=== PATIENT | male | born 1960 | race Caucasian/White ===

== ENCOUNTER 2018-01-16 06:59 | Outpatient (CLI) | payer OTHER, SELFPAY ==
[2018-01-16 08:00] LABS: Hemoglobin A1C 7.9 % (4.5-6.2)
[2018-01-16 08:38] LABS: TSH 2.18 uIU/mL (0.358-3.74)
== END 2018-01-16 07:19 ==
PROVIDERS: PCP Nurse Practitioner Family; Visit Provider Internal Medicine Endocrinology, Diabetes & Metabolism
DX: E10.9 Type 1 diabetes mellitus without complications (principal)
CPT/HCPCS: 36415; 83036; 84443

== ENCOUNTER 2018-04-15 09:42 | Outpatient (REF) | payer OTHER, SELFPAY ==
[2018-04-15 10:27] LABS: Hemoglobin A1C 8.2 % (4.5-6.2)
[2018-04-15 10:48] LABS: COMMENT (LAB VIEW ONLY) 180.84 mg/dL; Microalb ug/mg Crea 130.1 ug/mg Cr
== END 2018-04-15 10:02 ==
LOC: LBN 09:42
PROVIDERS: PCP Nurse Practitioner Family; Visit Provider Internal Medicine Endocrinology, Diabetes & Metabolism
DX: E10.65 Type 1 diabetes mellitus with hyperglycemia (principal)
CPT/HCPCS: 82043; 82570; 83036

== ENCOUNTER 2018-05-23 07:17 | Outpatient (CLI) | payer OTHER, SELFPAY ==
[2018-05-23 10:17] LABS: Hemoglobin A1C 8.2 % (4.5-6.2)
[2018-05-23 10:36] LABS: COMMENT (LAB VIEW ONLY) 253.24 mg/dL; Microalb ug/mg Crea 101.8 ug/mg Cr
[2018-05-23 10:58] LABS: ALT 30 U/L (12-78); AST 22 U/L (15-37); Albumin 3.6 g/dL (3.4-5.0); Alkaline Phosphatase 99 U/L (46-116); Anion Gap 10.8 mmol/L (3-11); BUN 22 mg/dL (7-18); Bilirubin, Total 0.8 mg/dL (0.2-1.0); CO2 26.2 mmol/L (21.0-32.0); Chloride 104 mmol/L (98-107); Glucose 176 mg/dL (70-100); Potassium 3.9 mmol/L (3.5-5.1); Sodium 141 mmol/L (136-145); TSH 1.73 uIU/mL (0.358-3.74)
== END 2018-05-23 07:37 ==
PROVIDERS: PCP Nurse Practitioner Family; Visit Provider Internal Medicine Endocrinology, Diabetes & Metabolism
DX: E10.9 Type 1 diabetes mellitus without complications (principal); E10.65 Type 1 diabetes mellitus with hyperglycemia; E10.29 Type 1 diabetes mellitus with other diabetic kidney complication; R80.9 Proteinuria, unspecified
CPT/HCPCS: 36415; 80053; 82043; 82570; 83036; 84443

== ENCOUNTER 2018-10-01 10:15 | Outpatient (REF) | payer OTHER, SELFPAY ==
[2018-10-01 11:19] LABS: COMMENT (LAB VIEW ONLY) 169.71 mg/dL; Microalb ug/mg Crea 165.9 ug/mg Cr
[2018-10-01 13:55] LABS: Anion Gap 10.1 mmol/L (3-11); BUN 23 mg/dL (7-18); CO2 26.9 mmol/L (21.0-32.0); CREATININE 0.98 mg/dL (0.70-1.30); Calcium 8.9 mg/dL (8.5-10.1); Chloride 102 mmol/L (98-107); Glucose 190 mg/dL (70-100); Sodium 139 mmol/L (136-145)
[2018-10-01 14:30] LABS: Hemoglobin A1C 8.1 % (4.5-6.2)
== END 2018-10-01 10:35 ==
LOC: LBN 10:15
PROVIDERS: PCP Nurse Practitioner Family; Visit Provider Internal Medicine Endocrinology, Diabetes & Metabolism
DX: E10.9 Type 1 diabetes mellitus without complications (principal); E10.65 Type 1 diabetes mellitus with hyperglycemia
CPT/HCPCS: 80048; 82043; 82570; 83036

== ENCOUNTER 2019-02-10 08:09 | Outpatient (REF) | payer OTHER, SELFPAY ==
[2019-02-10 13:02] LABS: COMMENT (LAB VIEW ONLY) 133.19 mg/dL
[2019-02-10 13:06] LABS: Microalb ug/mg Crea 233.7 ug/mg Cr
[2019-02-10 14:12] LABS: Hemoglobin A1C 7.7 % (4.5-6.2)
[2019-02-10 14:21] LABS: Anion Gap 10.3 mmol/L (3-11); BUN 25 mg/dL (7-18); CO2 27.7 mmol/L (21.0-32.0); CREATININE 1.13 mg/dL (0.70-1.30); Calcium 8.7 mg/dL (8.5-10.1); Calculated LDL 106 mg/dL; Chloride 102 mmol/L (98-107); Cholesterol 179 mg/dL (50-200); Glucose 158 mg/dL (70-100); HDL Cholesterol 52 mg/dL (40-60); Potassium 3.6 mmol/L (3.5-5.1); Sodium 140 mmol/L (136-145); Triglyceride 108 mg/dL (30-150)
== END 2019-02-10 08:29 ==
LOC: LBN 08:09
PROVIDERS: PCP Nurse Practitioner Family; Visit Provider Internal Medicine Endocrinology, Diabetes & Metabolism
DX: E10.8 Type 1 diabetes mellitus with unspecified complications (principal)
CPT/HCPCS: 80048; 80061; 82043; 82570; 83036

== ENCOUNTER 2019-05-19 08:05 | Outpatient (CLI) | payer OTHER, SELFPAY ==
[2019-05-19 09:48] LABS: Hemoglobin A1C 8.6 % (3.8-5.6)
== END 2019-05-19 08:25 ==
PROVIDERS: PCP Nurse Practitioner Family; Visit Provider Internal Medicine Endocrinology, Diabetes & Metabolism
DX: E10.29 Type 1 diabetes mellitus with other diabetic kidney complication (principal); R80.9 Proteinuria, unspecified
CPT/HCPCS: 36415; 83036

== ENCOUNTER 2019-07-25 15:07 | Outpatient (CLI) | payer OTHER, SELFPAY ==
--- NOTE | 2019-07-25 14:30 | DIABASSESS_ITS ---
DESCRIPTION/ASSESSMENT: Eric Lau presents for diabetes consult for information regarding continuous glucose monitors. He has type 1 diabetes 35 years without complications. INTERVENTION: Reviewed Freestyle Pearl and Dexcom G6 continuous glucose monitors and showed him the devices and discussed advantages and disadvantages of each. 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 He denies serious hypoglycemia unawareness. Process is PCP prescribes Freestyle Pearl: 1 FreeStyle Pearl 14 day reader (reader refills not required) [facility]# [id number] 2 FreeStyle Pearl 14 day sensors (28-day supply) [facility]# [id number] Sensor refills: 12 additional fills annually (1-year supply) ACTION PLAN: Eric will wait to hear from his PCP that the device has been ordered. He will follow up here to place the sensor and set up the reader for the first time. Individual DSME/T _2___ units billed TIME IN: 1420 OUT: 1500 No DM group education series being offered at this time.
== END 2019-07-25 15:27 ==
PROVIDERS: PCP Nurse Practitioner Family; Visit Provider Dietitian, Registered
DX: E11.9 Type 2 diabetes mellitus without complications (principal); Z79.4 Long term (current) use of insulin; Z71.3 Dietary counseling and surveillance
CPT/HCPCS: G0108

== ENCOUNTER 2019-09-18 09:45 | Outpatient (REF) | payer OTHER, SELFPAY ==
[2019-09-18 12:11] LABS: Hemoglobin A1C 6.9 % (3.8-5.6)
== END 2019-09-18 10:05 ==
LOC: LBN 09:45
PROVIDERS: PCP Nurse Practitioner Family; Visit Provider Internal Medicine Endocrinology, Diabetes & Metabolism
DX: E10.8 Type 1 diabetes mellitus with unspecified complications (principal)
CPT/HCPCS: 36415; 83036

== ENCOUNTER 2020-01-07 03:20 | Outpatient (CLI) | payer OTHER, SELFPAY | END 2020-01-07 03:40 | PROVIDERS: PCP Nurse Practitioner Family; Visit Provider Internal Medicine Endocrinology, Diabetes & Metabolism | DX: E10.29 Type 1 diabetes mellitus with other diabetic kidney complication (principal); R80.9 Proteinuria, unspecified | CPT/HCPCS: 36415; 83036 ==

== ENCOUNTER 2020-01-08 04:28 | Outpatient (CLI) | payer OTHER, SELFPAY ==
[2020-01-08 08:19] LABS: Hemoglobin A1C 7.2 % (3.8-5.6)
== END 2020-01-08 04:48 ==
PROVIDERS: PCP Nurse Practitioner Family; Visit Provider Internal Medicine Endocrinology, Diabetes & Metabolism
DX: E10.29 Type 1 diabetes mellitus with other diabetic kidney complication (principal); R80.9 Proteinuria, unspecified
CPT/HCPCS: 36415; 83036

== ENCOUNTER 2020-05-27 13:26 | Outpatient (REF) | payer OTHER, SELFPAY ==
[2020-05-27 10:13] LABS: Hemoglobin A1C 8.1 % (<5.7)
== END 2020-05-27 13:46 ==
LOC: NCHCN 13:26
PROVIDERS: PCP Nurse Practitioner Family; Visit Provider Nurse Practitioner Family
DX: E11.9 Type 2 diabetes mellitus without complications (principal)
CPT/HCPCS: 36415; 83036

== ENCOUNTER 2020-05-28 10:50 | Outpatient (REF) | payer OTHER, SELFPAY ==
[2020-05-28 15:25] LABS: COMMENT (LAB VIEW ONLY) 133.41 mg/dL; Microalb ug/mg Crea 207.9 ug/mg Cr
== END 2020-05-28 11:10 ==
LOC: NCHCN 10:50
PROVIDERS: PCP Nurse Practitioner Family; Visit Provider Nurse Practitioner Family
DX: I10 Essential (primary) hypertension (principal); E10.9 Type 1 diabetes mellitus without complications; E78.5 Hyperlipidemia, unspecified
CPT/HCPCS: 82043; 82570

== ENCOUNTER 2020-12-31 06:50 | Outpatient (REF) | payer OTHER, SELFPAY ==
[2020-12-31 07:23] LABS: Anion Gap 9.7 mmol/L (3-11); BUN 16 mg/dL (7-18); CO2 29.3 mmol/L (21.0-32.0); Calcium 8.5 mg/dL (8.5-10.1); Calculated LDL 123 mg/dL (<100); Chloride 104 mmol/L (98-107); Cholesterol 202 mg/dL (<200); Glucose 122 mg/dL (74-106); HDL Cholesterol 47 mg/dL (40-60); Potassium 4.1 mmol/L (3.5-5.1); Sodium 143 mmol/L (136-145); Triglyceride 162 mg/dL (<150)
[2020-12-31 07:41] LABS: FREE T4 0.82 ng/dL (0.76-1.46)
== END 2020-12-31 06:51 | disposition home or self-care (01) ==
LOC: NCHCN 06:50
PROVIDERS: PCP Nurse Practitioner Family; Visit Provider Nurse Practitioner Family
DX: I10 Essential (primary) hypertension (principal); E78.5 Hyperlipidemia, unspecified; E10.9 Type 1 diabetes mellitus without complications
CPT/HCPCS: 80048; 80061; 84439; 84443

== ENCOUNTER 2021-03-04 08:48 | Outpatient (CLI) | payer OTHER, SELFPAY ==
--- NOTE | 2021-03-04 08:45 | RT.EKG_ITS ---
APPROVED REPORT Exam: Resting ECG Reason for Exam: HTN Patient Location: O HR:55 bpm ECG Measurements Heart Rate 55 AXIS SD 207 P 47 QRSd 88 QRS 48 QT 456 T [id number] QTc 437 Conclusion Sinus rhythm...normal P axis, V-rate 50- 99 Probable left atrial enlargement...P >50mS, <-0.10mV V1 LVH with repolarization abnormalities Poor R wave progression
== END 2021-03-04 08:49 | disposition home or self-care (01) ==
LOC: DI.CARD 08:49
PROVIDERS: PCP Nurse Practitioner Family; Visit Provider Internal Medicine Cardiovascular Disease
DX: I10 Essential (primary) hypertension (principal)
CPT/HCPCS: 93010

== ENCOUNTER 2021-11-29 19:24 | Outpatient (REF) | payer OTHER, SELFPAY ==
[2021-11-29 20:54] LABS: Abs Immature Grans 0.05 10^3/uL (0.0-0.06); Absolute Basophil Count 0.04 10^3/uL (0.0-0.2); Absolute Eosinophil Count 0.21 10^3/uL (0.0-0.7); Absolute Lymphocyte Count 2.25 10^3/uL (1.2-3.4); Absolute Monocyte Count 0.66 10^3/uL (0.1-0.8); Absolute Neutrophil Count 6.16 10^3/uL (1.2-6.7); Basophils % 0.4; Eosinophils % 2.2; HCT 32.1 % (40.0-50.0); Immature Grans % 0.5; MCH 31.6 pg (27.0-33.0); MCHC 34.3 % (32.0-36.0); MCV 92 fL (80-95); MPV 10.8 fL (8.0-11.0); Neutrophils % 65.9; Platelet Count 398 10^3/uL (130-400); RBC 3.48 10^6/uL (4.36-5.78); RDW 12.4 % (11.8-14.1); RDW-SD 41.2 fL; WBC 9.37 10^3/uL (4.4-10.8)
[2021-11-29 21:09] LABS: ALT 96 U/L (16-63); AST 49 U/L (15-37); Albumin 2.5 g/dL (3.4-5.0); Alkaline Phosphatase 160 U/L (46-116); Anion Gap 8.3 mmol/L (3-11); BUN 21 mg/dL (7-18); Bilirubin, Total 0.3 mg/dL (0.2-1.0); CO2 26.7 mmol/L (21.0-32.0); CREATININE 1.3 mg/dL (0.70-1.30); Calcium 8.3 mg/dL (8.5-10.1); Chloride 102 mmol/L (98-107); Estimated GFR 55.75 (mL/min/1.73m2); Glucose 232 mg/dL (74-106); NT-proBNP 1825 pg/mL (<300); Potassium 4.7 mmol/L (3.5-5.1); Sodium 137 mmol/L (136-145); Total Protein 6.3 g/dL (6.4-8.2)
== END 2021-11-29 19:25 | disposition home or self-care (01) ==
LOC: LBN 19:24
PROVIDERS: PCP Nurse Practitioner Family; Visit Provider Nurse Practitioner Family
DX: I10 Essential (primary) hypertension (principal); I50.9 Heart failure, unspecified; J06.9 Acute upper respiratory infection, unspecified; R60.0 Localized edema; E03.9 Hypothyroidism, unspecified; E10.9 Type 1 diabetes mellitus without complications; E78.5 Hyperlipidemia, unspecified
CPT/HCPCS: 80053; 83880; 85025

== ENCOUNTER 2021-12-01 14:10 | Emergency (ER) | payer OTHER, SELFPAY ==
--- NOTE | 2021-12-01 14:15 | RT.EKG_ITS ---
APPROVED REPORT Exam: Resting ECG Reason for Exam: chf Patient Location: E HR:62 bpm ECG Measurements Heart Rate 62 AXIS WI 188 P 54 QRSd 94 QRS 42 QT 432 T 82 QTc 441 Conclusion Sinus rhythm...normal P axis, V-rate 60- 99 Anterior infarct, old...Q >40mS, abnormal ST-T, V2-V5
[2021-12-01 14:16] VITALS: BP 141/65; PULSE 68; RESP 16; TEMP 36.7; O2SAT 98
--- NOTE | 2021-12-01 14:36 | ED.GENADUL_ITS ---
Discharge Plan Disposition Patient Disposition: HOME Condition: Stable Discharge Details Clinical Impression: CHF (congestive heart failure) Primary Care Provider: Prachi Charles ED Provider: Gerber Casanova Home Meds and New Rx's Prescriptions: New furosemide [Lasix] 20 mg tablet 20 mg PO DAILY Qty: 30 0RF Continued clonidine HCl 0.1 mg tablet 0.1 mg PO DAILY insulin glargine [Lantus U-100 Insulin] 100 UNIT/1 ML solution 50 units SQ DAILY levothyroxine 75 MCG tablet 75 mcg PO DAILY Humalog KwikPen Insulin 200 UNIT/1 ML insulin pen 1 - 10 unit SQ TID metoprolol succinate 100 mg tablet extended release 24 hr 100 mg PO DAILY cyanocobalamin (vitamin B-12) [Vitamin B-12] 500 mcg tablet 500 mcg PO DAILY quinapril 40 mg tablet 80 mg PO BID ibuprofen [Ibuprofen IB] 200 MG tablet 600 mg PO PRN PRN pravastatin 40 MG tablet 40 mg PO QAM diltiazem HCl 300 MG capsule,extended release 24 hr 360 mg PO QAM hydrochlorothiazide 25 MG tablet 25 mg PO QAM aspirin [Aspirin Low-Strength] 81 MG tablet,chewable 81 mg PO QAM Discharge Instructions Instructions: Heart Failure (ED) Additional Instructions: your blood work other than your bnp which measures heart failure did not show concerning findings take the lasix daily in the morning follow up with your primary care provider within 1 week if you feel more ill, have worsening symptoms or chest pain return to the emergency department Medical Decision Making 61 yo male with hx of htn, hld, dm, no prior known cardiac disease comes in with complaint of leg swelling. He states a month or so ago he got the covid booster and the next day started to feel fatigued, dyspnea with exertion and body aches. He states the body aches resolved but still has some fatigue and dyspnea with exertionthough this is also improving. He saw [facility] and had labs done on 11/29 and his probnp was over 1800 and so came here. He denies any chest pain or pressure and on exam appears well in no distress speaking clearly. He does have pitting edema of both lower legs to the mid tibia, no calf tenderness. He has b lines bilaterally on lung u/s, small pericardial effusion, EF doesn't appear severely diminished. Suspect chf with his findings on lung u/s and probnp. Will obtain ecg, troponin and repeat cmp and cbc and also cxr. no hypoxia, tachycardia or pleuritic chest pain so doubt PE labs unremarkable other than probnp of over 4000, troponin negative. he remains stable and has urinated over 500cc and feels well. Discussed with pt and given he is not requiring oxygen nor having chest pain feel if second troponin is negative he would be safe for d/c and follow up with his pcp pt stable and asymptomatic, second troponin negative. Will start him on 20mg lasix and have him f/u with pcp return precautions also given Differential Diagnosis Differential Diagnosis: chf, nstemi, dependent edema Medical Records Medical records reviewed: Yes I reviewed the patient's medical records. Imaging Data Radiologic Study: Attestation: I personally reviewed and interpreted this imaging study as follows: Imaging: X-Ray Radiologist's impression: Patient Name: Yeyo Lau Unit #: [id number] Loc: ER ? Ordering Provider:Gerber Leiva M.D. Status: REG ER ? Primary Care Provider: Prachi Charles Date of Exam: 12/01/21 Sex: M ? Admission Date: 12/01/21? : 1960 ? Age: 61 ? Exam(s) XR CHEST 2V PA ? LATERAL EXAM:? XR CHEST 2V PA ? LATERAL CLINICAL HISTORY: ? dyspnea. ? TECHNIQUE:? 2D digital imaging was performed. COMPARISON:? No exams were available for comparison FINDINGS: 2 views: Heart size is normal.? The mediastinum is not widened. There is platelike atelectasis in the lateral right lung base.? No confluent infiltrates.? No large pleural effusions.? Pulmonary.? No pneumothorax. IMPRESSION: There is platelike atelectasis in the lateral right lung base. Lab Data Lab results reviewed: Yes I reviewed the patient's lab results. ECG Data Attestation: I personally reviewed and interpreted this ECG (s) as follows: Prior ECG tracings: available for review Interpretation: sinus rhythm, rate of 62, no acute st t wave ischemic findings HPI General Mode of arrival: ambulatory . Date/Time Provider Initiated Documentation: 12/01/21 14:16 . Limitations to Documentation: no limitations . Information obtained by: patient . History of Present Illness 61 year old M presents to the emergency department with the chief complaint of swollen legs, described as moderate, Patient started experiencing this month(s) (1) and it has been constant. No relieving factors improve symptom(s), No exacerbating factors reported . Patient notes other (fatigue, dyspnea with exertion). Patient did receive the following treatments prior to arrival, none Related Data Home Medications Medication Instructions Recorded Confirmed aspirin 81 mg chewable tablet 81 mg PO QAM 05/13/14 12/01/21 (Aspirin Low-Strength) diltiazem HCl 300 mg capsule,24 360 mg PO QAM 05/13/14 12/01/21 hr,extended release hydrochlorothiazide 25 mg tablet 25 mg PO QAM 05/13/14 12/01/21 ibuprofen 200 mg tablet (Ibuprofen 600 mg PO PRN PRN 05/13/14 03/04/21 IB) pravastatin 40 mg tablet 40 mg PO QAM 05/13/14 12/01/21 insulin glargine 100 unit/mL 50 units SQ DAILY 06/28/15 12/01/21 subcutaneous solution (Lantus U-100 Insulin) insulin lispro 200 unit/mL (3 mL) 1 - 10 unit SQ TID 06/28/15 12/01/21 subcutaneous pen (Humalog KwikPen U-200 Insulin) levothyroxine 75 mcg tablet 75 mcg PO DAILY 06/28/15 12/01/21 cyanocobalamin (vitamin B-12) 500 500 mcg PO DAILY 02/10/21 12/01/21 mcg tablet (Vitamin B-12) metoprolol succinate 100 mg 100 mg PO DAILY 02/10/21 12/01/21 tablet,extended release 24 hr clonidine HCl 0.1 mg tablet 0.1 mg PO DAILY 03/04/21 12/01/21 quinapril 40 mg tablet 80 mg PO BID 03/04/21 12/01/21 furosemide 20 mg tablet (Lasix) 20 mg PO DAILY #30 tabs 12/01/21 Previous Rx's Medication Instructions Recorded furosemide 20 mg tablet (Lasix) 20 mg PO DAILY #30 tabs 12/01/21 Allergies Allergy/AdvReac Type Severity Reaction Status Date / Time No Known Allergies Allergy Verified 12/01/21 14:23 General Stated Complaint: GenMedical LORA: 3 Review of Systems All systems reviewed & are unremarkable except as noted in HPI and below Constitutional Constitutional: Denies chills, Denies fever(s) and Denies weakness Eyes Eyes: Denies loss of vision ENT Ears, Nose, Mouth, and Throat: Denies change in voice Cardiovascular Cardiovascular: Denies chest pain Respiratory Respiratory: Denies cough Gastrointestinal Gastrointestinal: Denies abdominal pain, Denies nausea and Denies vomiting Genitourinary Genitourinary: Denies dysuria Integumentary/Breasts Skin/Breast: Denies rash Neurologic Neurologic: Denies loss of vision and Denies weakness PFSH All Active Problems (Updated 12/01/21 @ 18:10 by Gerber Casanova MD) CHF (congestive heart failure) (Chronic) HTN (hypertension) with goal to be determined (Acute) Type 1 diabetes mellitus without complications (Acute) Accelerated essential hypertension (Acute) Hyperlipidemia, unspecified (Acute) Acquired hypothyroidism (Acute) Screening for colorectal cancer (Acute) Social History Smoking/Tobacco Use Status: Former Tobacco Use Smoking risk assessment performed?: Yes Alcohol Intake: current Alcohol Intake frequency: a few times a month Drug use: Never Substance use type: does not use Do you feel safe at home: Yes Do you feel safe in your relationship?: Yes Exam Const General: no acute distress Orientation: alert [facility] Head: normal to inspection Ears: external ears normal General nose exam: external nose normal Mouth: moist mucous membranes Eyes General: appearance normal, both eyes and all related structures Neck Neck: normal visual inspection Resp Effort & Inspection: normal respiratory effort and able to speak in complete sentences Cardio Rate: regular rate Skin General skin exam: no rashes or lesions noted Neuro General: patient alert and patient oriented x3 Extrem General: capillary refill normal Psych Mental Status: mental status grossly normal Course Vital Signs Vital signs: Vital Signs Temperature 36.7 C 12/01/21 14:16 Pulse 68 12/01/21 14:16 Respiratory Rate 16 12/01/21 14:16 Blood Pressure 141/65 H 12/01/21 14:16 Pulse Oximetry 98 07/21/22 14:16 Temperature 36.7 C 12/01/21 14:16 Pulse 68 12/01/21 14:16 Respiratory Rate 16 12/01/21 14:16 Respiratory Effort 12/01/21 14:25 Respiratory Depth Normal 12/01/21 14:25 Respiratory Pattern Normal 12/01/21 14:25 Blood Pressure 141/65 H 12/01/21 14:16 Pulse Oximetry 98 12/01/21 14:16
[2021-12-01] MEDS: Furosemide 20 MG/2 ML VIAL IVP (14:56)
[2021-12-01] MEDS: Normal Saline Flush 10 ML SYR IVP (14:57)
[2021-12-01 15:05] LABS: Source Nasal/Nares
[2021-12-01 15:06] LABS: Abs Immature Grans 0.05 10^3/uL (0.0-0.06); Absolute Basophil Count 0.04 10^3/uL (0.0-0.2); Absolute Eosinophil Count 0.17 10^3/uL (0.0-0.7); Absolute Lymphocyte Count 1.91 10^3/uL (1.2-3.4); Absolute Neutrophil Count 6.64 10^3/uL (1.2-6.7); Basophils % 0.4; Eosinophils % 1.8; HCT 32.2 % (40.0-50.0); HGB 10.8 g/dL (13.5-17.5); Immature Grans % 0.5; Lymphocytes % 20.3; MCHC 33.5 % (32.0-36.0); MCV 93 fL (80-95); MPV 9.6 fL (8.0-11.0); Monocytes % 6.4; Neutrophils % 70.6; Platelet Count 425 10^3/uL (130-400); RBC 3.48 10^6/uL (4.36-5.78); RDW 12.6 % (11.8-14.1); WBC 9.41 10^3/uL (4.4-10.8)
[2021-12-01 15:21] LABS: INR 1.1 (0.9-1.1); PTT Activated 27.3 sec (21.0-27.5)
[2021-12-01 15:24] LABS: Magnesium 2.1 mg/dL (1.8-2.4); Troponin I < 50 ng/L (<or=60)
--- NOTE | 2021-12-01 15:30 | DI.RAD_ITS ---
Exam(s) XR CHEST 2V PA LATERAL EXAM: XR CHEST 2V PA LATERAL CLINICAL HISTORY: dyspnea. TECHNIQUE: 2D digital imaging was performed. COMPARISON: No exams were available for comparison FINDINGS: 2 views: Heart size is normal. The mediastinum is not widened. There is platelike atelectasis in the lateral right lung base. No confluent infiltrates. No large p leural effusions. Pulmonary. No pneumothorax. IMPRESSION: There is platelike atelectasis in the lateral right lung base. DATA REPOSITORY: RADIATION DOSE DELIVERED:
[2021-12-01 15:43] LABS: ALT 61 U/L (16-63); AST 30 U/L (15-37); Albumin 2.4 g/dL (3.4-5.0); Alkaline Phosphatase 133 U/L (46-116); Anion Gap 5.9 mmol/L (3-11); BUN 17 mg/dL (7-18); Bilirubin, Total 0.4 mg/dL (0.2-1.0); CO2 28.1 mmol/L (21.0-32.0); CREATININE 1.2 mg/dL (0.70-1.30); Calcium 8.7 mg/dL (8.5-10.1); Chloride 103 mmol/L (98-107); Glucose 156 mg/dL (74-106); NT-proBNP 4346 pg/mL (<300); Potassium 4.2 mmol/L (3.5-5.1); Sodium 137 mmol/L (136-145); Total Protein 6.6 g/dL (6.4-8.2)
[2021-12-01 15:57] LABS: COVID-19 PCR Negative (Negative)
[2021-12-01 17:56] LABS: Troponin I < 50 ng/L (<or=60)
[2021-12-01 18:24] VITALS: BP 160/68; PULSE 68; RESP 24; O2SAT 96
== END 2021-12-01 18:36 | disposition home or self-care (01) ==
PROVIDERS: Emergency Provider Emergency Medicine; PCP Nurse Practitioner Family
DX: I11.0 Hypertensive heart disease with heart failure (principal); I50.9 Heart failure, unspecified; E11.9 Type 2 diabetes mellitus without complications; I31.3 Pericardial effusion (noninflammatory); R60.0 Localized edema; R53.83 Other fatigue; Z20.822 Contact with and (suspected) exposure to COVID-19; Z87.891 Personal history of nicotine dependence
CPT/HCPCS: 80053; 87635; 93005; 96374; 99284; 71046; 83735; 83880; 84484; 85025; 85610; 85730; 93010; 99285; J1941

== ENCOUNTER 2021-12-07 03:27 | Emergency (ER) | payer OTHER, SELFPAY ==
--- NOTE | 2021-12-07 03:45 | DI.CT_ITS ---
Exam(s) CT THORACIC LUMBAR SPINE WO CT RENAL COLIC WO EXAM: CT RENAL COLIC WO and CT thoracic and lumbar spine without CLINICAL HISTORY: right flank and back pain, r/o stone. TECHNIQUE: Imaging Protocol: Axial computed tomography images with coronal and sagittal reformatted images were created and reviewed. COMPARISON: CT CT THORACIC LUMBAR SPINE WO from 12/07/2021 FINDINGS: Thoracic spine CT without contrast: There are no acute fractures or subluxations present. Mild degen erative changes are present throughout the thoracic spine. The visualized lung bases are clear. Cor onary artery calcifications are present. ABDOMEN: Lung Bases: Coronary artery calcifications are present. Liver: Normal density. There is a 3.2 x 3 cm hypodense mass in the posterior segment of the right lob e of the liver. Gallbladder and biliary tract: No radiodense calculus or biliary ductal dilation. Pancreas: Normal density, no abnormal calcifications or inflammatory process. Spleen: Calcified granuloma are seen in the spleen. Kidneys: Normal size, contour and axis.No radiodense stones or obstructive uropathy. No masses seen. Adrenal glands: No mass is seen. Lymph nodes: Within normal limits. Abdominal Aorta: Abdominal portion non-dilated. Atherosclerosis is present. PELVIS: Bladder:The urinary bladder is incompletely distended. There is mild diffuse thickening of the wall of the bladder. This may be due to underdistention. Infectious or inflammatory cystitis or other ca uses cannot be excluded. Bowel: No obstruction or bowel wall thickening. Appendix is unremarkable. There are few scattered si gmoid diverticula but no evidence of acute diverticulitis. Peritoneal cavity: No ascites, collection or mesenteric inflammatory response. No free air. Reproductive organs: Unremarkable as visualized. Bones: Within normal limits. Soft Tissues: There is a small fat containing umbilical hernia. Bilateral fat containing inguinal he rnia are present. Lumbar spine CT without contrast: Age-appropriate degenerative changes are present. The findings do result in [id number] central spinal canal stenosis at L4-5 and L5-S1. No suspicious lytic or s clerotic lesions are seen. There is no acute fracture or subluxation. IMPRESSION: 1. No evidence of nephrolithiasis or hydronephrosis. 2. 3.2 x 3 cm hypodense mass in the posterior segment of the right lobe of the liver. This is indete rminate on this noncontrast examination. Follow-up with a postcontrast CT scan of the abdomen or a p re and postcontrast MRI of the abdomen is recommended. 3. Multilevel degenerative changes in the lumbar spine. No acute fracture or subluxation in the lumb ar spine. 4. No acute fracture or subluxation is seen in the thoracic spine. RADIATION DOSE DELIVERED: 2081.02 mGy.cm Total DLP DATA REPOSITORY: All CT scans at this facility are submitted to the National Radiology Data Registry (NRDR) Dose Index Registry (DIR) with the [employer] ([employer]). RADIATION OPTIMIZATION: All CT scans at this facility use at least one of these dose optimization te chniques: automated exposure control; mA and/or kV adjustment per patient size (includes targeted exa ms where dose is matched to clinical indication); or iterative reconstruction.
[2021-12-07 03:47] VITALS: BP 140/88; PULSE 88; RESP 16; TEMP 39.7
--- NOTE | 2021-12-07 04:07 | ED.GENADUL_ITS ---
Discharge Plan Disposition Patient Disposition: HOME Condition: Good Discharge Details Clinical Impression: Chronic right-sided back pain Primary Care Provider: Prachi Charles ED Provider: Justen Hightower Home Meds and New Rx's Prescriptions: New lidocaine [Lidoderm] 5 % adhesive patch,medicated 1 patch Topical Q24H Qty: 15 0RF cyclobenzaprine 10 mg tablet 10 mg PO TID Qty: 14 0RF Continued clonidine HCl 0.1 mg tablet 0.1 mg PO DAILY insulin glargine [Lantus U-100 Insulin] 100 UNIT/1 ML solution 50 units SQ DAILY levothyroxine 75 MCG tablet 75 mcg PO DAILY Humalog KwikPen Insulin 200 UNIT/1 ML insulin pen 1 - 10 unit SQ TID metoprolol succinate 100 mg tablet extended release 24 hr 100 mg PO DAILY cyanocobalamin (vitamin B-12) [Vitamin B-12] 500 mcg tablet 500 mcg PO DAILY quinapril 40 mg tablet 80 mg PO BID ibuprofen [Ibuprofen IB] 200 MG tablet 600 mg PO PRN PRN pravastatin 40 MG tablet 40 mg PO QAM diltiazem HCl 300 MG capsule,extended release 24 hr 360 mg PO QAM hydrochlorothiazide 25 MG tablet 25 mg PO QAM aspirin [Aspirin Low-Strength] 81 MG tablet,chewable 81 mg PO QAM furosemide [Lasix] 20 mg tablet 20 mg PO DAILY Qty: 30 0RF Discharge Instructions Instructions: Back Pain (ED) Additional Instructions: At this time your symptoms appear consistent with a combination of arthritis in your spine, as well as spasms in your back. Please use a heating pad every night, make sure you are sleeping on a good mattress, and take Tylenol and Motrin as needed for pain. You can also take the muscle relaxant cyclobenzaprine as needed for spasm. As well as for Lidoderm patches. They have been sent to your pharmacy on file. It is extremely important to note that you should not take the cyclobenzaprine/muscle relaxant while working at your job though as it can cloud your mind and make you unbalanced. do not take it when driving or operating any vehicles or heavy machinery, swimming, taking long baths, or operating firearms. Please use a heating pad as often as possible on your back. Perform daily gentle stretches on your back. If you notice any worsening of your symptoms, or any new symptoms such as vomiting, diarrhea, fever, chills, shortness of breath, chest pain, numbness or tingling in your groin or legs, weakness in your legs, loss of control for your bowels or bladder, or fainting , please return immediately to the emergency department for reevaluation. Please follow up with your primary care provider as soon as possible for reassessment and reevaluation. As always, it was a pleasure participating in your medical care today. Referrals: Prachi Charles [Primary Care Provider] - Medical Decision Making 61-year-old male with a past medical history of congestive heart failure, hypertension, type 1 diabetes, high cholesterol, who presents today for right-sided back and flank pain. Patient states that symptoms have been present for the last 6 to 7 months. It is worse when he lies down at night to go to bed. He does work at [employer] and does do a lot of regular heavy lifting. He states he has been trying to cut down his lifting to around 25 pounds as of late. He states his pain is improved with Tylenol and Motrin. He states that it feels like it is more associated with the right flank and right back. It goes from around the area of the scapula down to the right lower back. Additionally the patient states that he has noticed that his urine has been slightly darker as of late. He denies seeing any blood. Patient denies any saddle anesthesia, numbness or tingling in the groin, change in sensation when wiping. Patient denies any change in sensation during sexual intercourse, difficulty achieving or maintaining an erection or ejaculation, bowel or bladder incontinence, leakage, or retention. Patient denies any weakness in the lower extremities, atypical falls or imbalance. He has no other complaints at this time. No other modifying factors. Physical exam demonstrates midline tenderness around T8-11, and then right paraspinal tenderness on the right paraspinal space down to the right-sided thoracic area and the right-sided lumbar area as well. No significant right CVA tenderness. Genital exam unremarkable. No physical exam findings or clinical history concerning for cauda equina syndrome. Differential is highest for arthritis and chronic lumbar go, however kidney stone and renal abnormality is also a slight concern. We will get a CT scan to evaluate for any bony process or kidney stone, we will get a UA to evaluate for infection or blood. Will monitor closely and reassess. 7:05 AM Urinalysis is negative for acute process. Notable delay in virtual radiology for CT scans. We are pending these. Patient feels stable otherwise. Will prep for potential discharge was signed out to Dr. Mantilla for follow-up on\and labs notable orthopedic or radiographic abnormality noted on CT scan, clinically I would suspect that the patient's symptoms are likely related to spine facet arthritis and muscle spasm. CT scan negative for acute process. Patient stable for discharge. No clinical evidence of cauda equina syndrome. Recommend close follow-up with PCP. I have extensively reviewed the treatment plan and discharge instructions with the patient. I have addressed all patient concerns at this time. The patient was made aware of what symptoms to monitor for that would warrant a return to the emergency department. Discussed the plan with the patient, they demonstrate verbal understanding and agreement with our assessment and plan at this time. The documentation in this chart was dictated using [employer] dictation software. Please excuse any dictation errors. FINDINGS: Bones/joints: No acute fracture. Normal alignment. Discs/Spinal canal/Neural foramina: No significant disc protrusion. No severe spinal canal stenosis. No significant neural foraminal narrowing. Soft tissues: Unremarkable. IMPRESSION: Unremarkable CT Spine. FINDINGS: Bones/joints: No acute fracture. Normal alignment. Discs/Spinal canal/Neural foramina: No significant disc protrusion. No severe spinal canal stenosis. No significant neural foraminal narrowing. Soft tissues: Unremarkable. IMPRESSION: No acute findings. Thank you for allowing us to participate in the care of your patient. Dictated and Authenticated by: Sean Tijerina MD 12/07/2021 7:30 AM Eastern Time ([place] & [place]) FINDINGS: Liver: 2.7 cm hypodensity within the dome of the liver length measuring water density, compatible with a simple hepatic cyst. Gallbladder and bile ducts: Normal. No calcified stones. No ductal dilation. Pancreas: Normal. No ductal dilation. Spleen: Normal. No splenomegaly. Adrenal glands: Normal. No mass. Kidneys and ureters: Normal. No hydronephrosis. Stomach and bowel: Unremarkable. No obstruction. No mucosal thickening. Appendix: No evidence of appendicitis. Intraperitoneal space: Unremarkable. No free air. No significant fluid collection. Vasculature: Unremarkable. No abdominal aortic aneurysm. Lymph nodes: Unremarkable. No enlarged lymph nodes. Urinary bladder: Unremarkable as visualized. Reproductive: Unremarkable as visualized. Bones/joints: Unremarkable. No acute fracture. Soft tissues: Unremarkable. IMPRESSION: 1. No acute findings. 2. Simple hepatic cyst. Thank you for allowing us to participate in the care of your patient. Dictated and Authenticated by: Sean Tijerina MD 12/07/2021 7:21 AM Eastern Time ([place] & [place]) HPI General Date/Time Provider Initiated Documentation: 12/07/21 03:29 . HPI Narrative: 61-year-old male with a past medical history of congestive heart failure, hypertension, type 1 diabetes, high cholesterol, who presents today for right-sided back and flank pain. Patient states that symptoms have been present for the last 6 to 7 months. It is worse when he lies down at night to go to bed. He does work at [employer] and does do a lot of regular heavy lifting. He states he has been trying to cut down his lifting to around 25 pounds as of late. He states his pain is improved with Tylenol and Motrin. He states that it feels like it is more associated with the right flank and right back. It goes from around the area of the scapula down to the right lower back. Additionally the patient states that he has noticed that his urine has been slightly darker as of late. He denies seeing any blood. Patient denies any sa ddle anesthesia, numbness or tingling in the groin, change in sensation when wiping. Patient denies any change in sensation during sexual intercourse, difficulty achieving or maintaining an erection or ejaculation, bowel or bladder incontinence, leakage, or retention. Patient denies any weakness in the lower extremities, atypical falls or imbalance. He has no other complaints at this time. No other modifying factors. Related Data Home Medications Medication Instructions Recorded Confirmed aspirin 81 mg chewable tablet 81 mg PO QAM 05/13/14 12/01/21 (Aspirin Low-Strength) diltiazem HCl 300 mg capsule,24 360 mg PO QAM 05/13/14 12/01/21 hr,extended release hydrochlorothiazide 25 mg tablet 25 mg PO QAM 05/13/14 12/07/21 ibuprofen 200 mg tablet (Ibuprofen 600 mg PO PRN PRN 05/13/14 12/07/21 IB) pravastatin 40 mg tablet 40 mg PO QAM 05/13/14 12/07/21 insulin glargine 100 unit/mL 50 units SQ DAILY 06/28/15 12/07/21 subcutaneous solution (Lantus U-100 Insulin) insulin lispro 200 unit/mL (3 mL) 1 - 10 unit SQ TID 06/28/15 12/01/21 subcutaneous pen (Humalog KwikPen U-200 Insulin) levothyroxine 75 mcg tablet 75 mcg PO DAILY 06/28/15 12/07/21 cyanocobalamin (vitamin B-12) 500 500 mcg PO DAILY 02/10/21 12/01/21 mcg tablet (Vitamin B-12) metoprolol succinate 100 mg 100 mg PO DAILY 02/10/21 12/07/21 tablet,extended release 24 hr clonidine HCl 0.1 mg tablet 0.1 mg PO DAILY 03/04/21 12/01/21 quinapril 40 mg tablet 80 mg PO BID 03/04/21 12/07/21 furosemide 20 mg tablet (Lasix) 20 mg PO DAILY #30 tabs 12/01/21 12/07/21 cyclobenzaprine 10 mg tablet 10 mg PO TID #14 tabs 12/07/21 lidocaine 5 % topical patch 1 patch topical Q24H #15 ea 12/07/21 (Lidoderm) Previous Rx's Medication Instructions Recorded furosemide 20 mg tablet (Lasix) 20 mg PO DAILY #30 tabs 12/01/21 cyclobenzaprine 10 mg tablet 10 mg PO TID #14 tabs 12/07/21 lidocaine 5 % topical patch 1 patch topical Q24H #15 ea 12/07/21 (Lidoderm) Allergies Allergy/AdvReac Type Severity Reaction Status Date / Time No Known Allergies Allergy Verified 12/01/21 14:23 General Stated Complaint: GenMedical LORA: 4 Review of Systems All systems reviewed & are unremarkable except as noted in HPI and below PFSH All Active Problems (Updated 12/07/21 @ 07:06 by Justen Hightower DO) CHF (congestive heart failure) (Chronic) Chronic right-sided back pain (Acute) HTN (hypertension) with goal to be determined (Acute) Type 1 diabetes mellitus without complications (Acute) Accelerated essential hypertension (Acute) Hyperlipidemia, unspecified (Acute) Acquired hypothyroidism (Acute) Screening for colorectal cancer (Acute) Social History Smoking/Tobacco Use Status: Former Tobacco Use Smoking risk assessment performed?: Yes Alcohol Intake: current Alcohol Intake frequency: a few times a month Drug use: Never Substance use type: does not use Do you feel safe at home: Yes Do you feel safe in your relationship?: Yes Exam Narrative Exam Narrative: 1.Const: Well-nourished, Well-developed, appearing stated age 2.Eyes: PERRL, no conjunctival injection, and symmetrical lids. 3.ENT: Atraumatic external nose and ears. Moist MM. Neck: Symmetric, trachea midline, No thyromegaly. 4.CVS: +S1/S2, No murmurs or gallops. Peripheral pulses 2+ and equal in all extremities. Brisk capillary refill in all extremities. 5.RESP: Unlabored respiratory effort. Clear to auscultation bilaterally. No wheezes rales or rhonchi 6.GI: Soft, Nontender/Nondistended, No hepatosplenomegaly. No guarding or rebound. 7.MSK: Normocephalic/Atraumatic, Extremities w/o deformity or ttp No cyanosis or clubbing, Normal movement of all extremities patient has minimal midline tenderness over T8-11, and then right-sided paraspinal tenderness down through the right paraspinal space, and to the right lower lumbar vertebra. Normal ROM in flexion, extension, side bend, and rotation. Patient has +5 out of 5 strength in the lower extremities in dorsiflexion and plantarflexion, knee flexion and extension, hip flexion and extension. Normal strength for dorsiflexion and plantar flexion of the great toe bilaterally. There is +2 over 2 dorsalis pedis pulses bilaterally. There is normal sensation to the skin with light touch at the foot, knee, and hip. Normal saddle sensation. Good sensation over the deep sural nerve area bilaterally. Rectal exam deferred. Reflexes are +2 over 4 in the patellar reflex bilaterally. +5 out of 5 strength in the medial, ulnar, radial nerve distribution bilaterally in the hands as well as intact light touch sensation to these dermatomes on the hands. 8.Skin: Warm, Dry. No rashes or lesions. 9.Neuro: service order dispatcher II-XII grossly intact. Sensation grossly intact, no focal neurologic deficits. 10.Psych: (AAO) x3. Appropriate mood and affect Course Vital Signs Vital signs: Vital Signs Temperature 39.7 C H 12/07/21 03:47 Pulse 88 12/07/21 03:47 Respiratory Rate 16 12/07/21 03:47 Blood Pressure 140/88 12/07/21 03:47 Temperature 39.7 C H 12/07/21 03:47 Temperature Source Skin 12/07/21 03:47 Pulse 88 12/07/21 03:47 Respiratory Rate 16 12/07/21 03:47 Blood Pressure 140/88 12/07/21 03:47 Blood Pressure Position Sitting 12/07/21 03:47 Oxygen Delivery Method Room Air 12/07/21 03:47 Oxygen Flow Rate 0 12/07/21 03:47 Pain Level 7 12/07/21 03:47
[2021-12-07] MEDS: Lidocaine 5% Patch 1 PATCH TP (04:23)
[2021-12-07 05:32] LABS: Bilirubin Negative (Negative); Blood Negative (Negative); Clarity Clear (Clear); Glucose 100 mg/dL (Negative); Ketones 40 mg/dL (Negative); Leukocyte Esterase Negative (Negative); Nitrite Negative (Negative); Specific Gravity >= 1.030 (1.005-1.025); Urobilinogen 0.2 EU/dL (Up TO 0.2); pH 5.5 (5-8)
[2021-12-07 05:41] LABS: Bacteria Rare HPF (Negative); C & S Indicated? No; Casts 0-2 Hyaline LPF (Negative); Crystals Negative HPF (Negative); Epithelial Cells Rare HPF (Negative); Mucus Trace (Negative); RBC 0-2 HPF (0-2); WBC Negative HPF (0-5)
--- NOTE | 2021-12-07 07:21 | DI.VRAD_ITS ---
The PROCEDURE INFORMATION: Exam: CT Abdomen And Pelvis Without Contrast Exam date and time: 12/07/2021 4:14 AM Age: 61 years old Clinical indication: Abdominal pain; Flank; Right; Additional info: Right flank pain TECHNIQUE: Imaging protocol: Computed tomography of the abdomen and pelvis without contrast. Radiation optimization: All CT scans at this facility use at least one of these dose optimization techniques: automated exposure control; mA and/or kV adjustment per patient size (includes targeted exams where dose is matched to clinical indication); or iterative reconstruction. COMPARISON: CR XR CHEST 2V PA LATERAL 12/01/2021 4:07 PM FINDINGS: Liver: 2.7 cm hypodensity within the dome of the liver length measuring water density, compatible with a simple hepatic cyst. Gallbladder and bile ducts: Normal. No calcified stones. No ductal dilation. Pancreas: Normal. No ductal dilation. Spleen: Normal. No splenomegaly. Adrenal glands: Normal. No mass. Kidneys and ureters: Normal. No hydronephrosis. Stomach and bowel: Unremarkable. No obstruction. No mucosal thickening. Appendix: No evidence of appendicitis. Intraperitoneal space: Unremarkable. No free air. No significant fluid collection. Vasculature: Unremarkable. No abdominal aortic aneurysm. Lymph nodes: Unremarkable. No enlarged lymph nodes. Urinary bladder: Unremarkable as visualized. Reproductive: Unremarkable as visualized. Bones/joints: Unremarkable. No acute fracture. Soft tissues: Unremarkable. IMPRESSION: 1. No acute findings. 2. Simple hepatic cyst. Dictated and Authenticated by: Sean Tijerina MD. Ordering:CRISTI Campuzano MD
--- NOTE | 2021-12-07 07:30 | DI.VRAD_ITS ---
PROCEDURE INFORMATION: Exam: CT Thoracic Spine Without Contrast Exam date and time: 12/07/2021 4:14 AM Age: 61 years old Clinical indication: Other: Pain t8-t11; Pain in thoracic spine; Without myelpathy or radiculopathy; Additional info: Right flank pain, pain midline t8-t11 TECHNIQUE: Imaging protocol: Computed tomography of the thoracic spine without contrast. Radiation optimization: All CT scans at this facility use at least one of these dose optimization techniques: automated exposure control; mA and/or kV adjustment per patient size (includes targeted exams where dose is matched to clinical indication); or iterative reconstruction. COMPARISON: CR XR CHEST 2V PA LATERAL 12/01/2021 4:07 PM FINDINGS: Bones/joints: No acute fracture. Normal alignment. Discs/Spinal canal/Neural foramina: No significant disc protrusion. No severe spinal canal stenosis. No significant neural foraminal narrowing. Soft tissues: Unremarkable. IMPRESSION: Unremarkable CT Spine. PROCEDURE INFORMATION: Exam: CT Lumbar Spine Without Contrast Exam date and time: 12/07/2021 4:14 AM Age: 61 years old Clinical indication: Other: Pain t8-t11; Pain in thoracic spine; Without myelpathy or radiculopathy; Additional info: Right flank pain, pain midline t8-t11 TECHNIQUE: Imaging protocol: Computed tomography of the lumbar spine without contrast. Radiation optimization: All CT scans at this facility use at least one of these dose optimization techniques: automated exposure control; mA and/or kV adjustment per patient size (includes targeted exams where dose is matched to clinical indication); or iterative reconstruction. COMPARISON: No relevant prior studies available. FINDINGS: Bones/joints: No acute fracture. Normal alignment. Discs/Spinal canal/Neural foramina: No significant disc protrusion. No severe spinal canal stenosis. No significant neural foraminal narrowing. Soft tissues: Unremarkable. IMPRESSION: No acute findings. Dictated and Authenticated by: Sean Tijerina MD. Ordering:CRISTI Campuzano MD
== END 2021-12-07 08:01 | disposition home or self-care (01) ==
PROVIDERS: Emergency Provider Student in an Organized Health Care Education/Training Program; PCP Nurse Practitioner Family
DX: M54.9 Dorsalgia, unspecified (principal); G89.29 Other chronic pain; I11.0 Hypertensive heart disease with heart failure; I50.9 Heart failure, unspecified; E10.9 Type 1 diabetes mellitus without complications; Z79.82 Long term (current) use of aspirin; Z79.4 Long term (current) use of insulin; Z87.891 Personal history of nicotine dependence
CPT/HCPCS: 99284; 72128; 72131; 74176; 81003; 81015

== ENCOUNTER 2021-12-08 18:33 | Outpatient (REF) | payer OTHER, SELFPAY ==
[2021-12-08 15:13] LABS: ALT 61 U/L (16-63); AST 36 U/L (15-37); Albumin 2.6 g/dL (3.4-5.0); Alkaline Phosphatase 104 U/L (46-116); BUN 31 mg/dL (7-18); Bilirubin, Total 0.4 mg/dL (0.2-1.0); CREATININE 1.5 mg/dL (0.70-1.30); Calcium 8.6 mg/dL (8.5-10.1); Chloride 97 mmol/L (98-107); Estimated GFR 47.27 (mL/min/1.73m2); Glucose 187 mg/dL (74-106); NT-proBNP 1916 pg/mL (<300); Potassium 4.2 mmol/L (3.5-5.1); Sodium 132 mmol/L (136-145); Total Protein 6.8 g/dL (6.4-8.2)
== END 2021-12-08 18:34 | disposition home or self-care (01) ==
LOC: NCHCN 18:33
PROVIDERS: Nurse Practitioner Family; PCP Nurse Practitioner Family; Visit Provider Nurse Practitioner Family
DX: R60.0 Localized edema (principal); R06.02 Shortness of breath
CPT/HCPCS: 80053; 83880

== ENCOUNTER 2021-12-22 13:35 | Outpatient (REF) | payer OTHER, SELFPAY ==
[2021-12-22 08:16] LABS: NT-proBNP 2066 pg/mL (<300)
== END 2021-12-22 13:36 | disposition home or self-care (01) ==
LOC: LBN 13:35
PROVIDERS: PCP Nurse Practitioner Family; Visit Provider Nurse Practitioner Family
DX: R60.0 Localized edema (principal); R06.02 Shortness of breath; I50.9 Heart failure, unspecified
CPT/HCPCS: 83880

== ENCOUNTER 2022-03-27 22:24 | Outpatient (REF) | payer OTHER, SELFPAY ==
[2022-03-27 22:40] LABS: Abs Immature Grans 0.01 10^3/uL (0.0-0.06); Absolute Basophil Count 0.04 10^3/uL (0.0-0.2); Absolute Eosinophil Count 0.26 10^3/uL (0.0-0.7); Absolute Lymphocyte Count 1.51 10^3/uL (1.2-3.4); Absolute Monocyte Count 0.57 10^3/uL (0.1-0.8); Basophils % 0.6; Eosinophils % 4.2; HCT 39.3 % (40.0-50.0); HGB 13.3 g/dL (13.5-17.5); Immature Grans % 0.2; Lymphocytes % 24.4; MCH 29.3 pg (27.0-33.0); MCHC 33.8 % (32.0-36.0); MCV 87 fL (80-95); Monocytes % 9.2; Neutrophils % 61.4; RBC 4.54 10^6/uL (4.36-5.78); RDW 11.9 % (11.8-14.1); RDW-SD 37.8 fL; WBC 6.19 10^3/uL (4.4-10.8)
[2022-03-27 23:19] LABS: ALT 28 U/L (16-63); AST 24 U/L (15-37); Albumin 3.4 g/dL (3.4-5.0); Alkaline Phosphatase 89 U/L (46-116); Anion Gap 4.6 mmol/L (3-11); BUN 25 mg/dL (7-18); Bilirubin, Total 0.6 mg/dL (0.2-1.0); CO2 30.4 mmol/L (21.0-32.0); CREATININE 1.3 mg/dL (0.70-1.30); Calcium 8.8 mg/dL (8.5-10.1); Chloride 102 mmol/L (98-107); Estimated GFR 61.35 (mL/min/1.73m2); Folate > 20.0 ng/mL (8.6-20.0); Glucose 297 mg/dL (74-106); Potassium 4.7 mmol/L (3.5-5.1); Sodium 137 mmol/L (136-145); Total Protein 6.8 g/dL (6.4-8.2); Vitamin B12 444 pg/mL (193-986)
== END 2022-03-27 22:25 | disposition home or self-care (01) ==
LOC: LBN 22:24
PROVIDERS: PCP Nurse Practitioner Family; Visit Provider Nurse Practitioner Family
DX: E87.1 Hypo-osmolality and hyponatremia (principal); R20.2 Paresthesia of skin; M54.89 Other dorsalgia
CPT/HCPCS: 80053; 82607; 82746; 84425; 85025

== ENCOUNTER → 2022-04-04 01:59 | Outpatient (CLI) | payer OTHER, SELFPAY ==
--- NOTE | 2022-04-04 07:30 | DI.US_ITS ---
APPROVED REPORT EXAM: Comprehensive 2D, Doppler, and color-flow Echocardiogram Patient Location: Out-Patient [employer] Developer: Fanta Ansari RDCS (AE) Indications: Bilateral lower extremity edema, Persistent e Other Information Study Quality: Adequate Conclusion Normal left ventricular wall thickness and chamber size. Estimated ejection fraction is 55 to 60%. Wall motion is normal Normal right ventricular size and systolic function Both atria are normal in size The aortic valve is trileaflet. Leaflets are thickened but there is no aortic stenosis or regurgitat ion Moderate mitral annular calcification. Trace mitral regurgitation Normal tricuspid valve with trace regurgitation. Estimated right ventricular systolic pressure is 21 mmHg Wall motion Left Ventricle The left ventricle is normal size. The left ventricular systolic function is normal. The left ventric ular ejection fraction is within the normal range. There is normal left ventricular wall thickness. T here is normal LV segmental wall motion. There is no ventricular septal defect visualized. LVEF is 58 %. Right Ventricle The right ventricle is normal size. The right ventricular systolic function is normal. The RVSP is 20 .7 mmHg. Atria The left atrium size is normal. The right atrium size is normal. The interatrial septum is intact wit h no evidence for an atrial septal defect. Aortic Valve Aortic valve is thickened but has adequate excursion. Aortic valve is trileaflet. There is no aortic valvular stenosis. No aortic regurgitation is present. Mitral Valve Moderate mitral annular calcification. No evidence of mitral valve stenosis. Trace mitral regurgitati on. Tricuspid Valve The tricuspid valve is normal in structure. There is no tricuspid valve stenosis. Trace tricuspid reg urgitation. Pulmonic Valve The pulmonary valve is normal in structure. There is no pulmonic valvular stenosis. Trace pulmonic re gurgitation. Great Vessels The aortic root is normal in size. The ascending aorta is normal in size. Aortic arch is not well vis ualized. IVC is normal in size and collapses >50% with inspiration. Pericardium There is no pericardial effusion. 2D Dimensions IVSD d PLAX 1.16 cm M: 0.6-1.2 LV Vol A2C d MOD 135.6 mL LVPW d PLAX 1.16 cm M: 0.6 - 1.2 LV Vol A4C d MOD 155.5 mL LVID d PLAX 4.60 cm M: 4.2 - 5.8 LA vol/ BSA A2C s A-L 33.3 mL/m2 LVDs 3.25 cm M: 2.5 - 4.0 LA vol/ BSA A4C s A-L 28.3 mL/m2 Ao Root d 2.95 cm M: 3.1 - 3.7 LA Vol/ BSA Biplane s A-L 31.6 mL/m2 RA Area A4C 14.74 cm2 LA Area A4C s MOD 17.43 cm2 RA Vol/ BSA A4C s A-L 20.4 mL/m2 LA Area A2C s MOD 19.50 cm2 Ao Asc Diam d 3.34 cm M: 2.6 - 3.4 LV EF A4C MOD 58.2 % LV EF Teichholz 55.2 % LV EF A2C MOD 59.7 % LVEF (Bronson's) 57.68 % M: 52 - 72 LV EF Biplane MOD 57.7 % LV Volume 111.70 mL M: 62 - 150 SV 84.14 mL LV Volume Index 59.41 mL/m2 M: 34 - 74 SV Index 44.70 mL/m2 LV Vol Biplane MOD 145.9 mL FS 28.60 % M-Mode TAPSE 2.30 cm (M/F) >1.7 LV Diastology MV E' medial 0.053 (>0.07 m/s) E/A Ratio 0.9 LV E/e MED 15.40 (<14) MV E Vmax 0.81 (0.4-1.3 m/s) MV E' lateral 0.055 (>0.1 m/s) MV A Vmax 0.95 (0.4-1.3 m/s) LV E/e LAT 14.70 (<14) MV E/A Ratio 0.82 MV E/E' medial 15.43 MV E/E' lateral 14.74 Aortic Valve LVOT Area 3.65 cm2 AoV Area Vmax 2.70 cm2 LVOT Vmax 1.12 m/s AoV Area/ BSA (Vmax) 1.43 cm2/m2 LVOT Mean Jameel. 0.76 m/s OPAL Mean Jameel. 2.73 cm2 LVOT Peak Grad 5.0 mmHg OPAL Mean Jameel. Index 1.45 cm2/m2 LVOT Mean Grad 2.7 mmHg LVOT VTI 0.263 m LVOT Diam s 2.15 cm AoV Vmax 1.51 m/s Velocity Ratio 0.74 AoV Mean Jameel. 1.02 m/s AoV Peak Grad 9.1 mmHg LVOT SV 96.22 mL AoV Mean Grad 4.7 mmHg AoV VTI 0.339 m AoV Area VTI 2.84 cm2 AoV Area/ BSA (VTI) 1.51 cm/m2 Mitral Valve MV DT 279 (160-240 msec) MV PHT 81 msec MV Area PHT 2.72 cm2 MV VTI 0.427 m MV Area VTI 2.25 (4.0-6.0 cm2) Pulmonary Valve PV Vmax 1.01 (0.5-1.5 m/s) RVOT Peak Gr. 2.84 mmHg PV Peak Grad 4.1 mmHg RVOT Mean Gr. 1.20 mmHg PV Mean Grad 2.0 mmHg RVOT VTI 0.178 m PV VTI 0.221 m RVOT Vmax 0.84 m/s Tricuspid Valve TR Peak Grad 17.6 mmHg TR Vmax 2.10 m/s RA Pressure 3.00 mmHg RVSP (TR) 20.7 mmHg
== END ==
PROVIDERS: PCP Nurse Practitioner Family; Visit Provider Nurse Practitioner Family
DX: R60.9 Edema, unspecified (principal)
CPT/HCPCS: 93306

== ENCOUNTER 2022-09-14 14:24 | Outpatient (REF) | payer OTHER, SELFPAY ==
[2022-09-14 18:42] LABS: Abs Immature Grans 0.01 10^3/uL (0.0-0.06); Absolute Basophil Count 0.07 10^3/uL (0.0-0.2); Absolute Eosinophil Count 0.36 10^3/uL (0.0-0.7); Absolute Lymphocyte Count 1.69 10^3/uL (1.2-3.4); Absolute Monocyte Count 0.57 10^3/uL (0.1-0.8); Eosinophils % 5.1; HCT 40.5 % (40.0-50.0); HGB 14.1 g/dL (13.5-17.5); Immature Grans % 0.1; Lymphocytes % 23.8; MCH 30.5 pg (27.0-33.0); MCHC 34.8 % (32.0-36.0); MCV 88 fL (80-95); MPV 10.8 fL (8.0-11.0); Platelet Count 295 10^3/uL (130-400); RBC 4.62 10^6/uL (4.36-5.78); RDW-SD 38.6 fL
[2022-09-14 18:45] LABS: ALT 33 U/L (16-63); AST 23 U/L (15-37); Albumin 3.8 g/dL (3.4-5.0); Alkaline Phosphatase 93 U/L (46-116); Anion Gap 8.3 mmol/L (3-11); BUN 18 mg/dL (7-18); Bilirubin, Total 0.6 mg/dL (0.2-1.0); CO2 29.7 mmol/L (21.0-32.0); CREATININE 1.1 mg/dL (0.70-1.30); Chloride 102 mmol/L (98-107); Estimated GFR 74.96 (mL/min/1.73m2); Glucose 155 mg/dL (74-106); Potassium 3.8 mmol/L (3.5-5.1); Sodium 140 mmol/L (136-145); TSH (W/Ref FT4) 4.32 uIU/mL (0.36-3.74); Total Protein 7.2 g/dL (6.4-8.2)
[2022-09-14 19:13] LABS: Hemoglobin A1C 6.9 % (<5.7)
[2022-09-14 19:44] LABS: FREE T4 0.91 ng/dL (0.76-1.46)
== END 2022-09-14 14:25 | disposition home or self-care (01) ==
LOC: NCHCN 14:24
PROVIDERS: PCP Nurse Practitioner Family; Visit Provider Physician Assistant Medical
DX: E10.9 Type 1 diabetes mellitus without complications (principal)
CPT/HCPCS: 80053; 83036; 84439; 84443; 85025

== ENCOUNTER 2023-02-08 18:43 | Emergency (ER) | payer OTHER, SELFPAY ==
[2023-02-08 18:47] VITALS: BP 179/71; PULSE 67; RESP 20; TEMP 36.7; O2SAT 96
--- NOTE | 2023-02-08 20:41 | W.ED.GENAD ---
Discharge Plan Disposition Patient Disposition: Home Discharge Details Clinical Impression: Localized swelling of right lower extremity Primary Care Provider: Reny Rodriguez ED Provider: Justen Hightower Home Meds and New Rx's Prescriptions: No Action clonidine HCl 0.1 mg tablet 0.1 mg PO DAILY insulin glargine [Lantus U-100 Insulin] 100 UNIT/1 ML solution 50 units SQ DAILY levothyroxine 75 MCG tablet 75 mcg PO DAILY Humalog KwikPen Insulin 200 UNIT/1 ML insulin pen 1 - 10 unit SQ TID metoprolol succinate 100 mg tablet extended release 24 hr 100 mg PO DAILY cyanocobalamin (vitamin B-12) [Vitamin B-12] 500 mcg tablet 500 mcg PO DAILY quinapril 40 mg tablet 80 mg PO BID ibuprofen [Ibuprofen IB] 200 MG tablet 600 mg PO PRN PRN pravastatin 40 MG tablet 40 mg PO QAM diltiazem HCl 300 MG capsule,extended release 24 hr 360 mg PO QAM hydrochlorothiazide 25 MG tablet 25 mg PO QAM aspirin [Aspirin Low-Strength] 81 MG tablet,chewable 81 mg PO QAM furosemide [Lasix] 20 mg tablet 20 mg PO DAILY Qty: 30 0RF lidocaine [Lidoderm] 5 % adhesive patch,medicated 1 patch Topical Q24H Qty: 15 0RF cyclobenzaprine 10 mg tablet 10 mg PO TID Qty: 14 0RF Discharge Instructions Instructions: Deep Vein Thrombosis (ED), Cueva Cyst (ED) Additional Instructions: At this time you have evidence of a localized area of swelling in your calf around your muscle. I suspect there was a mild tear or irritation of the muscle which developed this, and is led to a small hematoma in that area. I did not see any evidence of blood clots otherwise in the vessels. However this was an informal ultrasound. Please follow-up tomorrow for formal ultrasound of your leg. Please call the number highlighted on the order sheet at 730 to 8 AM to schedule the appointment time. Please wear compression stockings up your leg for the next 1 to 2 weeks to help with the swelling. Keep your legs elevated when possible. If you notice any worsening of your symptoms, or any new symptoms such as vomiting, diarrhea, fever, chills, shortness of breath, chest pain, numbness, weakness, or fainting , please return immediately to the emergency department for reevaluation. Please follow up with your primary care provider as soon as possible for reassessment and reevaluation. As always, it was a pleasure participating in your medical care today. Stand Alone Forms: Work Release Referrals: Reny Rodriguez [Primary Care Provider] - Medical Decision Making 63-year-old male with a past medical history of type 1 diabetes, hypertension, high cholesterol, who presents today for evaluation of right calf pain. Patient states that 2 or 3 days ago he had some mild soreness in the leg, and noticed that there was some mild swelling as well. He works at [employer] on his feet all shift. He denies any trauma. He denies any long trips, surgeries or procedures. He denies any smoking or exogenous estrogen. He denies any other complaints at this time. No history of blood clots in the past. He does not take any blood thinners. No other complaints at this time. Pain is made worse with palpation and movement. Exam demonstrates slight swelling in the right lower extremity compared to the left. Minimal tenderness in the posterior medial calf. No risk factors or red flags for blood clots though historically. Limited bedside ultrasound was performed and demonstrates evidence of no blood clots that I can visualize from distal to proximal right lower extremity. However there does appear to be a cystic atypical structure in the most external component of the muscle belly of gastrocnemius. No vascular flow was noted on the images. It does not appear to be within the vascular path, and seems to be constrained within the fascia of the muscle. Symptoms appear clinically inconsistent with DVT. We did discuss risks and benefits of blood thinners, at this time we will hold off on blood thinners, and schedule urgent ultrasound tomorrow morning. Patient will be discharged home with recommendations for compression stockings, elevation, and close follow-up for ultrasonography. Discussed red flags for which to return. I have extensively reviewed the treatment plan and discharge instructions with the patient and their family. I have addressed all patient concerns at this time. The patient and family was made aware of what symptoms to monitor for that would warrant a return to the emergency department. Discussed the plan with the patient and family, they demonstrate verbal understanding and agreement with our assessment and plan at this time. The documentation in this chart was dictated using [employer] dictation software. Please excuse any dictation errors. HPI General Date/Time Provider Initiated Documentation: 02/08/23 19:59. HPI Narrative: 63-year-old male with a past medical history of type 1 diabetes, hypertension, high cholesterol, who presents today for evaluation of right calf pain. Patient states that 2 or 3 days ago he had some mild soreness in the leg, and noticed that there was some mild swelling as well. He works at [employer] on his feet all shift. He denies any trauma. He denies any long trips, surgeries or procedures. He denies any smoking or exogenous estrogen. He denies any other complaints at this time. No history of blood clots in the past. He does not take any blood thinners. No other complaints at this time. Pain is made worse with palpation and movement. Related Data Home Medications Medication Instructions Recorded Confirmed aspirin 81 mg chewable tablet 81 mg PO QAM 05/13/14 04/20/22 (Aspirin Low-Strength) diltiazem HCl 300 mg capsule,24 360 mg PO QAM 05/13/14 04/20/22 hr,extended release hydrochlorothiazide 25 mg tablet 25 mg PO QAM 05/13/14 04/20/22 ibuprofen 200 mg tablet (Ibuprofen 600 mg PO PRN PRN 05/13/14 04/20/22 IB) pravastatin 40 mg tablet 40 mg PO QAM 05/13/14 04/20/22 insulin glargine 100 unit/mL 50 units SQ DAILY 06/28/15 04/20/22 subcutaneous solution (Lantus U-100 Insulin) insulin lispro 200 unit/mL (3 mL) 1 - 10 unit SQ TID 06/28/15 04/20/22 subcutaneous pen (Humalog KwikPen U-200 Insulin) levothyroxine 75 mcg tablet 75 mcg PO DAILY 06/28/15 04/20/22 cyanocobalamin (vitamin B-12) 500 500 mcg PO DAILY 02/10/21 04/20/22 mcg tablet (Vitamin B-12) metoprolol succinate 100 mg 100 mg PO DAILY 02/10/21 04/20/22 tablet,extended release 24 hr clonidine HCl 0.1 mg tablet 0.1 mg PO DAILY 03/04/21 04/20/22 quinapril 40 mg tablet 80 mg PO BID 03/04/21 04/20/22 furosemide 20 mg tablet (Lasix) 20 mg PO DAILY #30 tabs 07/21/22 12/08/22 cyclobenzaprine 10 mg tablet 10 mg PO TID #14 tabs 12/07/21 04/20/22 lidocaine 5 % topical patch 1 patch topical Q24H #15 ea 12/07/21 04/20/22 (Lidoderm) Previous Rx's Medication Instructions Recorded furosemide 20 mg tablet (Lasix) 20 mg PO DAILY #30 tabs 12/01/21 cyclobenzaprine 10 mg tablet 10 mg PO TID #14 tabs 12/07/21 lidocaine 5 % topical patch 1 patch topical Q24H #15 ea 12/07/21 (Lidoderm) Allergies Allergy/AdvReac Type Severity Reaction Status Date / Time No Known Allergies Allergy Verified 02/08/23 18:53 General Stated Complaint: Vascular LORA: 3 Review of Systems All systems reviewed & are unremarkable except as noted in HPI and below PFSH All Active Problems Localized swelling of right lower extremity (Acute) HTN (hypertension) with goal to be determined (Acute) Type 1 diabetes mellitus without complications (Acute) Accelerated essential hypertension (Acute) Hyperlipidemia, unspecified (Acute) Acquired hypothyroidism (Acute) Screening for colorectal cancer (Acute) Medical History Bilateral lower extremity edema Elevated brain natriuretic peptide (BNP) level Hyponatremia Liver mass, right lobe Social History Smoking/Tobacco Use Status: Former Tobacco Use Smoking risk assessment performed?: Yes Alcohol Intake: current Alcohol Intake frequency: a few times a month Drug use: Never Substance use type: does not use Do you feel safe at home: Yes Do you feel safe in your relationship?: Yes Exam Narrative Exam Narrative: 1.Const: Well-nourished, Well-developed, appearing stated age 2.Eyes: PERRL, no conjunctival injection, and symmetrical lids. 3.ENT: Atraumatic external nose and ears. Moist MM. Neck: Symmetric, trachea midline, No thyromegaly. 4.CVS: +S1/S2, No murmurs or gallops. Peripheral pulses 2+ and equal in all extremities. Brisk capillary refill in all extremities. 5.RESP: Unlabored respiratory effort. Clear to auscultation bilaterally. No wheezes rales or rhonchi 6.GI: Soft, Nontender/Nondistended, No hepatosplenomegaly. No guarding or rebound. 7.MSK: Normocephalic/Atraumatic. Patient's right lower extremity does demonstrate slight swelling throughout, trace pitting edema in the pretibial space. Normal sensation. Dorsalis pedis and posterior tibial pulse +2 bilaterally. No focal redness to suggest cellulitis. Mild tenderness in the medial posterior aspect of the calf. No pain with active dorsiflexion, however significant passive stretching elicits mild mid calf pain. 8.Skin: Warm, Dry. No rashes or lesions. 9.Neuro: cad draftsman II-XII grossly intact. Sensation grossly intact, no focal neurologic deficits. 10.Psych: (AAO) x3. Appropriate mood and affect Course Vital Signs Vital signs: Vital Signs Temperature 36.7 C 02/08/23 18:47 Pulse 67 02/08/23 18:47 Respiratory Rate 20 02/08/23 18:47 Blood Pressure 179/71 H 02/08/23 18:47 Pulse Oximetry 96 02/08/23 18:47 Temperature 36.7 C 02/08/23 18:47 Temperature Source Skin 02/08/23 18:47 Pulse 67 02/08/23 18:47 Respiratory Rate 20 02/08/23 18:47 Blood Pressure 179/71 H 02/08/23 18:47 Blood Pressure Position Sitting 02/08/23 18:47 Pulse Oximetry 96 02/08/23 18:47 Oxygen Delivery Method Room Air 02/08/23 18:47 Oxygen Flow Rate 0 02/08/23 18:47 Pain Level 3 02/08/23 18:47
--- NOTE | 2023-02-08 20:44 | NUR.NOTE ---
Ultrasound requisition faxed to DI for RLE ultrasound for swelling, DVT vs Muscle Hematoma. Patient given copy of requistion and instructed call [facility] Scheduling after 7am 02/09/23.Nursing Note:
[2023-02-08 20:58] VITALS: BP 205/68; PULSE 55; RESP 18; TEMP 36.8; O2SAT 98
== END 2023-02-08 20:52 | disposition home or self-care (01) ==
PROVIDERS: Emergency Provider Student in an Organized Health Care Education/Training Program; PCP Nurse Practitioner Family
DX: R22.41 Localized swelling, mass and lump, right lower limb (principal); E78.00 Pure hypercholesterolemia, unspecified
CPT/HCPCS: 76882; 99284; 99283

== ENCOUNTER 2023-02-09 12:17 | Emergency (ER) | payer OTHER, SELFPAY ==
[2023-02-09 12:44] VITALS: BP 159/73; PULSE 54; RESP 18; TEMP 36.5; O2SAT 98
--- NOTE | 2023-02-09 12:48 | ED.GENADUL_ITS ---
Discharge Plan Disposition Patient Disposition: Home Condition: Stable Discharge Details Clinical Impression: Cueva cyst, Hematoma Primary Care Provider: Reny Rodriguez ED Provider: Farrah Og Home Meds and New Rx's Prescriptions: No Action clonidine HCl 0.1 mg tablet 0.1 mg PO DAILY insulin glargine [Lantus U-100 Insulin] 100 UNIT/1 ML solution 50 units SQ DAILY levothyroxine 75 MCG tablet 75 mcg PO DAILY Humalog KwikPen Insulin 200 UNIT/1 ML insulin pen 1 - 10 unit SQ TID metoprolol succinate 100 mg tablet extended release 24 hr 100 mg PO DAILY cyanocobalamin (vitamin B-12) [Vitamin B-12] 500 mcg tablet 500 mcg PO DAILY quinapril 40 mg tablet 80 mg PO BID ibuprofen [Ibuprofen IB] 200 MG tablet 600 mg PO PRN PRN pravastatin 40 MG tablet 40 mg PO QAM diltiazem HCl 300 MG capsule,extended release 24 hr 360 mg PO QAM hydrochlorothiazide 25 MG tablet 25 mg PO QAM aspirin [Aspirin Low-Strength] 81 MG tablet,chewable 81 mg PO QAM furosemide [Lasix] 20 mg tablet 20 mg PO DAILY Qty: 30 0RF lidocaine [Lidoderm] 5 % adhesive patch,medicated 1 patch Topical Q24H Qty: 15 0RF cyclobenzaprine 10 mg tablet 10 mg PO TID Qty: 14 0RF Discharge Instructions Instructions: Cueva Cyst (ED), Hematoma (ED) Additional Instructions: There is a hematoma which is some fluid collection under the skin, and a cueva cyst to you knee. This is probably causing the swelling. Wear compression stockings and simeon wrap the area for pain and swelling. Follow-up with orthopedics and/or your PCP for any worsening. Please take Tylenol or Ibuprofen with food every 4-6 hours as needed for pain and swelling. Follow up with primary care provider in 3-5 days. Return to ED sooner if any worsening or concerns. Increase oral fluids. Referrals: Reny Rodriguez [Primary Care Provider] - 3 days Discharge Data Discharge Date/Time-TO BE ENTERED AT DEPARTURE: 02/09/23 12:59 Medical Decision Making 63 year old male presents to the ED for results of a US. Results called to myself by tech Froylan with reports of probable Bakers cyst, and hematoma. No evidence of DVT. Simeon wrap ordered, given results of US and discharge instructions. This text was generated using [employer] dictation system, please disregard any oddities of phrase or misspellings. Medical Records Medical records reviewed: Yes I reviewed the patient's medical records. Imaging Data Radiologic Study: Imaging: Ultrasound Radiologist's impression: EXAM: US LOWER EXTREMITY VENOUS RT CLINICAL HISTORY: SWELLING, EVAL FOR DVT VS MASS/HEMATOMA TECHNIQUE: Right lower extremity venous ultrasound performed using grayscale, color-flow, and spectral Doppler analysis. COMPARISON: No exams were available for comparison FINDINGS: The right common femoral, femoral and popliteal veins demonstrate normal compressibility, augmentation, and color Doppler. The posterior tibial and peroneal veins are patent. The saphenofemoral junction is unremarkable. There is a 3.2 x 0.9 x 2.7 cm Cueva cyst. There is a 10.5 x 1.6 x 7.7 cm complex fluid collection in the superior right calf. IMPRESSION: 1. No evidence of a right lower extremity DVT. 2. 3.2 x 0.9 x 2.7 cm Cueva cyst. 3. Complex 10.5 cm fluid collection in the superior right calf. This may represent a hematoma or continuation of the Cueva cyst. Please correlate with patient's clinical history. HPI General Mode of arrival: ambulatory . Date/Time Provider Initiated Documentation: 02/09/23 12:45 . Limitations to Documentation: no limitations . Information obtained by: patient and old records reviewed . HPI Narrative: 63 year old male presents to the ED for results of a US. Results called to myself by US tech Froylan with reports of probable Bakers cyst, and hematoma. No evidence of DVT. Related Data Home Medications Medication Instructions Recorded Confirmed aspirin 81 mg chewable tablet 81 mg PO QAM 05/13/14 04/20/22 (Aspirin Low-Strength) diltiazem HCl 300 mg capsule,24 360 mg PO QAM 05/13/14 04/20/22 hr,extended release hydrochlorothiazide 25 mg tablet 25 mg PO QAM 05/13/14 04/20/22 ibuprofen 200 mg tablet (Ibuprofen 600 mg PO PRN PRN 05/13/14 04/20/22 IB) pravastatin 40 mg tablet 40 mg PO QAM 05/13/14 04/20/22 insulin glargine 100 unit/mL 50 units SQ DAILY 06/28/15 04/20/22 subcutaneous solution (Lantus U-100 Insulin) insulin lispro 200 unit/mL (3 mL) 1 - 10 unit SQ TID 06/28/15 04/20/22 subcutaneous pen (Humalog KwikPen U-200 Insulin) levothyroxine 75 mcg tablet 75 mcg PO DAILY 06/28/15 04/20/22 cyanocobalamin (vitamin B-12) 500 500 mcg PO DAILY 02/10/21 04/20/22 mcg tablet (Vitamin B-12) metoprolol succinate 100 mg 100 mg PO DAILY 02/10/21 04/20/22 tablet,extended release 24 hr clonidine HCl 0.1 mg tablet 0.1 mg PO DAILY 03/04/21 04/20/22 quinapril 40 mg tablet 80 mg PO BID 03/04/21 04/20/22 furosemide 20 mg tablet (Lasix) 20 mg PO DAILY #30 tabs 12/01/21 04/20/22 cyclobenzaprine 10 mg tablet 10 mg PO TID #14 tabs 12/07/21 04/20/22 lidocaine 5 % topical patch 1 patch topical Q24H #15 ea 12/07/21 04/20/22 (Lidoderm) Previous Rx's Medication Instructions Recorded furosemide 20 mg tablet (Lasix) 20 mg PO DAILY #30 tabs 12/01/21 cyclobenzaprine 10 mg tablet 10 mg PO TID #14 tabs 12/07/21 lidocaine 5 % topical patch 1 patch topical Q24H #15 ea 12/07/21 (Lidoderm) Allergies Allergy/AdvReac Type Severity Reaction Status Date / Time No Known Allergies Allergy Verified 02/08/23 18:53 General Stated Complaint: Recheck LORA: 5 Review of Systems Musculoskeletal Musculoskeletal: Reports as per HPI PFSH All Active Problems Localized swelling of right lower extremity (Acute) Cueva cyst (Acute) Hematoma (Acute) HTN (hypertension) with goal to be determined (Acute) Type 1 diabetes mellitus without complications (Acute) Accelerated essential hypertension (Acute) Hyperlipidemia, unspecified (Acute) Acquired hypothyroidism (Acute) Screening for colorectal cancer (Acute) Medical History Bilateral lower extremity edema Elevated brain natriuretic peptide (BNP) level Hyponatremia Liver mass, right lobe Social History Smoking/Tobacco Use Status: Former Tobacco Use Smoking risk assessment performed?: Yes Alcohol Intake: current Alcohol Intake frequency: a few times a month Drug use: Never Substance use type: does not use Do you feel safe at home: Yes Do you feel safe in your relationship?: Yes Course Vital Signs Vital signs: Vital Signs Temperature 36.5 C 02/09/23 12:44 Pulse 54 L 02/09/23 12:44 Respiratory Rate 18 02/09/23 12:44 Blood Pressure 159/73 H 02/09/23 12:44 Pulse Oximetry 98 02/09/23 12:44 Temperature 36.5 C 02/09/23 12:44 Temperature Source Skin 02/09/23 12:44 Pulse 54 L 02/09/23 12:44 Respiratory Rate 18 02/09/23 12:44 Respiratory Effort Normal 02/09/23 12:48 Blood Pressure 159/73 H 02/09/23 12:44 Blood Pressure Position Sitting 02/09/23 12:44 Pulse Oximetry 98 02/09/23 12:44 Oxygen Delivery Method Room Air 02/09/23 12:44 Oxygen Flow Rate 0 02/09/23 12:44
== END 2023-02-09 12:59 | disposition home or self-care (01) ==
PROVIDERS: Emergency Provider Registered Nurse Emergency; PCP Nurse Practitioner Family
DX: M71.21 Synovial cyst of popliteal space [Baker], right knee (principal)
CPT/HCPCS: 99281; 99282

== ENCOUNTER 2023-03-23 15:20 | Outpatient (REF) | payer OTHER, SELFPAY ==
[2023-03-23 19:23] LABS: Abs Immature Grans 0.02 10^3/uL (0.0-0.06); Absolute Basophil Count 0.06 10^3/uL (0.0-0.2); Absolute Eosinophil Count 0.42 10^3/uL (0.0-0.7); Absolute Lymphocyte Count 1.43 10^3/uL (1.2-3.4); Absolute Monocyte Count 0.65 10^3/uL (0.1-0.8); Absolute Neutrophil Count 3.82 10^3/uL (1.2-6.7); Basophils % 0.9; Eosinophils % 6.6; HCT 38.6 % (40.0-50.0); Immature Grans % 0.3; Lymphocytes % 22.3; MCH 29.9 pg (27.0-33.0); MCHC 33.7 % (32.0-36.0); MCV 89 fL (80-95); MPV 10.6 fL (8.0-11.0); Monocytes % 10.2; Neutrophils % 59.7; Platelet Count 306 10^3/uL (130-400); RBC 4.35 10^6/uL (4.36-5.78); RDW 12.2 % (11.8-14.1); RDW-SD 39.8 fL
[2023-03-23 19:46] LABS: ALT 22 U/L (16-63); AST 26 U/L (15-37); Albumin 3.3 g/dL (3.4-5.0); Alkaline Phosphatase 98 U/L (46-116); Anion Gap 6.3 mmol/L (3-11); BUN 20 mg/dL (7-18); Bilirubin, Total 0.6 mg/dL (0.2-1.0); CO2 26.7 mmol/L (21.0-32.0); CREATININE 1.3 mg/dL (0.70-1.30); Calcium 9.1 mg/dL (8.5-10.1); Chloride 104 mmol/L (98-107); Estimated GFR 60.96 (mL/min/1.73m2); Glucose 210 mg/dL (74-106); Sodium 137 mmol/L (136-145); TSH (W/Ref FT4) 1.77 uIU/mL (0.36-3.74); Total Protein 7.4 g/dL (6.4-8.2)
[2023-03-23 20:24] LABS: Hemoglobin A1C 8.1 % (<5.7)
== END 2023-03-23 15:21 | disposition home or self-care (01) ==
LOC: NCHCN 15:20
PROVIDERS: PCP Nurse Practitioner Family; Visit Provider Nurse Practitioner Family
DX: I10 Essential (primary) hypertension (principal); E78.5 Hyperlipidemia, unspecified; E10.9 Type 1 diabetes mellitus without complications
CPT/HCPCS: 80053; 83036; 84443; 85025

== ENCOUNTER 2023-06-22 15:25 | Outpatient (REF) | payer OTHER, SELFPAY ==
[2023-06-22 20:09] LABS: Hemoglobin A1C 7.7 % (<5.7)
== END 2023-06-22 15:26 | disposition home or self-care (01) ==
LOC: NCHCN 15:25
PROVIDERS: PCP Nurse Practitioner Family; Visit Provider Nurse Practitioner Family
DX: E11.9 Type 2 diabetes mellitus without complications (principal)
CPT/HCPCS: 83036

== ENCOUNTER 2023-11-02 16:11 | Outpatient (REF) | payer OTHER, SELFPAY ==
[2023-11-02 19:49] LABS: Abs Immature Grans 0.02 10^3/uL (0.0-0.06); Absolute Basophil Count 0.09 10^3/uL (0.0-0.2); Absolute Eosinophil Count 0.85 10^3/uL (0.0-0.7); Absolute Lymphocyte Count 1.38 10^3/uL (1.2-3.4); Absolute Monocyte Count 0.59 10^3/uL (0.1-0.8); Basophils % 1.4 %; Eosinophils % 12.8 %; Immature Grans % 0.3 %; Lymphocytes % 20.8 %; MCHC 35.1 % (32.0-36.0); MCV 88 fL (80-95); MPV 10.8 fL (8.0-11.0); Monocytes % 8.9 %; Neutrophils % 55.8 %; Platelet Count 317 10^3/uL (130-400); RBC 4.19 10^6/uL (4.36-5.78); RDW 11.9 % (11.8-14.1); RDW-SD 38.7 fL; WBC 6.63 10^3/uL (4.4-10.8)
[2023-11-02 20:17] LABS: ALT 22 U/L (16-63); AST 15 U/L (15-37); Albumin 3.3 g/dL (3.4-5.0); Alkaline Phosphatase 108 U/L (46-116); Anion Gap 6.6 mmol/L (3-11); BUN 22 mg/dL (7-18); Bilirubin, Total 0.51 mg/dL (0.2-1.0); CO2 30.4 mmol/L (21.0-32.0); CREATININE 1.3 mg/dL (0.70-1.30); Calcium 8.7 mg/dL (8.5-10.1); Calculated LDL 71 mg/dL (<100); Chloride 101 mmol/L (98-107); Cholesterol 155 mg/dL (<200); Estimated GFR 60.96 (mL/min/1.73m2); Glucose 198 mg/dL (74-106); HDL Cholesterol 40 mg/dL (40-60); Potassium 4.1 mmol/L (3.5-5.1); Sodium 138 mmol/L (136-145); TSH 1.28 uIU/Ml (0.36-3.74); Total Protein 6.7 g/dL (6.4-8.2); Triglyceride 224 mg/dL (<150)
[2023-11-02 20:38] LABS: FREE T4 1.07 ng/dL (0.76-1.46)
== END 2023-11-02 16:12 | disposition home or self-care (01) ==
LOC: NCHCN 16:11
PROVIDERS: Visit Provider Nurse Practitioner Family
DX: E11.9 Type 2 diabetes mellitus without complications (principal); E78.5 Hyperlipidemia, unspecified; E03.9 Hypothyroidism, unspecified; Z86.2 Personal history of diseases of the blood and blood-forming organs and certain disorders involving the immune mechanism
CPT/HCPCS: 80053; 80061; 84439; 84443; 85025

== ENCOUNTER 2023-12-10 09:44 | Emergency (ER) | payer MEDICARE, OTHER, SELFPAY ==
[2023-12-10 09:47] VITALS: BP 168/61; PULSE 62; RESP 17; TEMP 36.3; O2SAT 99
--- NOTE | 2023-12-10 10:00 | DI.CT_ITS ---
Exam(s) CT LUMBAR SPINE RECONS CT RENAL COLIC WO EXAM: CT RENAL COLIC WO CLINICAL HISTORY: right flank pain. TECHNIQUE: Imaging Protocol: Axial computed tomography images with coronal and sagittal reformatted images were created and reviewed. Axial, coronal and sagittal images of the lumbar spine were reconstructed in bone and soft tissue alg orithm. CONTRAST MATERIAL: Noncontrast COMPARISON: CT CT ABDOMEN WO/W from 01/04/[address] LUMBAR SPINE RECONS from 12/10/2023 FINDINGS: ABDOMEN: Lung Bases: Normal where visualized. Liver: Normal attenuation. No change hemangioma near dome of liver Gallbladder and biliary tract: No radiodense calculus or dilation. Pancreas: Normal density, no calcifications or inflammatory process. Spleen: Normal. Kidneys: Normal size, contour and axis. No radiodense stones or obstructive uropathy. No masses seen. Adrenal glands: No masses seen. Abdominal Aorta: Abdominal portion non-dilated. Soft tissues: Small fatty containing inguinal hernias. PELVIS: Bladder: Symmetric distention, no gross wall thickening. No evidence of stones.No visible mass. Bowel: No obstruction or bowel wall thickening. Six normal. Reproductive: Unremarkable. Peritoneal cavity: No ascites, collection or mesenteric inflammatory response. Bones: No evidence of fracture, lytic or blastic lesion. Facet degenerative changes are present from L2-3 through L4-5. Degenerative disc changes noted with significant disc space narrowing at L2-3 a nd L3-4. Prominent endplate osteophytes at these levels. Moderate central canal stenosis at L3-4 an d L4-5. Bilateral neural foraminal narrowing from L2-3 through L5-S1.. IMPRESSION: No evidence of urinary tract calculi or hydronephrosis. Degenerative changes in the lumbar spine wit h moderate central canal stenosis at L3-4 and L4-5. Multilevel bilateral neural foraminal narrowing. RADIATION DOSE DELIVERED: Total DLP DATA REPOSITORY: All CT scans at this facility are submitted to the National Radiology Data Registry (NRDR) Dose Index Registry (DIR) with the [employer] (A[employer]). RADIATION OPTIMIZATION: All CT scans at this facility use at least one of these dose optimization te chniques: automated exposure control; mA and/or kV adjustment per patient size (includes targeted exa ms where dose is matched to clinical indication); or iterative reconstruction.
--- NOTE | 2023-12-10 10:05 | ED.GENADUL_ITS ---
Discharge Plan Disposition Patient Disposition: Home Condition: Stable Discharge Details Clinical Impression: Lumbar back pain Primary Care Provider: Reny Rodriguez ED Provider: Gerber Casanova Home Meds and New Rx's Prescriptions: New gabapentin 300 mg capsule 300 mg PO TID Qty: 30 0RF Continued red beet root-sour greco ext 250-0.5 mg tablet,chewable 2 tab PO DAILY clonidine HCl 0.1 mg tablet 0.1 mg PO DAILY insulin glargine [Lantus U-100 Insulin] 100 UNIT/1 ML solution 50 units SQ DAILY levothyroxine 75 MCG tablet 75 mcg PO DAILY Humalog KwikPen Insulin 200 UNIT/1 ML insulin pen 1 - 10 unit SQ TID metoprolol succinate 100 mg tablet extended release 24 hr 100 mg PO DAILY cyanocobalamin (vitamin B-12) [Vitamin B-12] 500 mcg tablet 500 mcg PO DAILY quinapril 40 mg tablet 80 mg PO BID ibuprofen [Ibuprofen IB] 200 MG tablet 600 mg PO PRN PRN pravastatin 40 MG tablet 40 mg PO QAM diltiazem HCl 300 MG capsule,extended release 24 hr 360 mg PO QAM hydrochlorothiazide 25 MG tablet 25 mg PO QAM aspirin [Aspirin Low-Strength] 81 MG tablet,chewable 81 mg PO QAM furosemide [Lasix] 20 mg tablet 20 mg PO DAILY Qty: 30 0RF lidocaine [Lidoderm] 5 % adhesive patch,medicated 1 patch Topical Q24H Qty: 15 0RF Discharge Instructions Additional Instructions: Your imaging and lab work did not show any emergent findings. You do have some degenerative disease in your lumbar spine which becomes more common as you age Follow-up with your primary care provider within 1 to 2 weeks You can take 600 mg of ibuprofen and 1000 mg of acetaminophen every 6 hours as needed. Do not exceed 3000 mg of acetaminophen in a 24-hour period If you feel more ill or have new symptoms such as high fevers or persistent vomiting return to the emergency department for reevaluation HPI General Mode of arrival: ambulatory . Date/Time Provider Initiated Documentation: 12/10/23 09:49 . Limitations to Documentation: no limitations . Information obtained by: patient . History of Present Illness 63 year old M presents to the emergency department with the chief complaint of lower back pain, described as moderate, Quality is described as aching, Patient extremity. Patient started experiencing this month(s) (2) and it has been constant. No relieving factors improve symptom(s), No exacerbating factors reported . Patient notes no other symptoms.. Patient did receive the following treatments prior to arrival, none Related Data Home Medications ?Medication ?Instructions ?Recorded ?Confirmed aspirin 81 mg chewable tablet 81 mg PO QAM 05/13/14 12/10/23 (Aspirin Low-Strength) diltiazem HCl 300 mg capsule,24 360 mg PO QAM 05/13/14 12/10/23 hr,extended release hydrochlorothiazide 25 mg tablet 25 mg PO QAM 05/13/14 12/10/23 ibuprofen 200 mg tablet (Ibuprofen 600 mg PO PRN PRN 05/13/14 12/10/23 IB) pravastatin 40 mg tablet 40 mg PO QAM 05/13/14 12/10/23 insulin glargine 100 unit/mL 50 units SQ DAILY 06/28/15 12/10/23 subcutaneous solution (Lantus U-100 Insulin) insulin lispro 200 unit/mL (3 mL) 1 - 10 unit SQ TID 06/28/15 12/10/23 subcutaneous pen (Humalog KwikPen U-200 Insulin) levothyroxine 75 mcg tablet 75 mcg PO DAILY 06/28/15 12/10/23 cyanocobalamin (vitamin B-12) 500 500 mcg PO DAILY 02/10/21 12/10/23 mcg tablet (Vitamin B-12) metoprolol succinate 100 mg 100 mg PO DAILY 02/10/21 12/10/23 tablet,extended release 24 hr clonidine HCl 0.1 mg tablet 0.1 mg PO DAILY 03/04/21 12/10/23 quinapril 40 mg tablet 80 mg PO BID 03/04/21 12/10/23 furosemide 20 mg tablet (Lasix) 20 mg PO DAILY #30 tabs 12/01/21 12/10/23 lidocaine 5 % topical patch 1 patch topical Q24H #15 ea 12/07/21 12/10/23 (Lidoderm) red beet root 250 mg-sour greco 2 tab PO DAILY 04/19/23 12/10/23 extract 0.5 mg chewable tablet gabapentin 300 mg capsule 300 mg PO TID #30 caps 12/10/23 Previous Rx's ?Medication ?Instructions ?Recorded furosemide 20 mg tablet (Lasix) 20 mg PO DAILY #30 tabs 12/01/21 lidocaine 5 % topical patch 1 patch topical Q24H #15 ea 12/07/21 (Lidoderm) gabapentin 300 mg capsule 300 mg PO TID #30 caps 12/10/23 Allergies Allergy/AdvReac Type Severity Reaction Status Date / Time No Known Allergies Allergy Verified 12/10/23 09:50 General Stated Complaint: Nk/Back Pain LORA: 4 Review of Systems All systems reviewed & are unremarkable except as noted in HPI and below Constitutional Constitutional: Denies chills, Denies fever(s) and Denies weakness Cardiovascular Cardiovascular: Denies chest pain and Denies dyspnea Respiratory Respiratory: Denies cough and Denies dyspnea Gastrointestinal Gastrointestinal: Denies abdominal pain, Denies nausea and Denies vomiting Musculoskeletal Musculoskeletal: Denies joint swelling Neurologic Neurologic: Denies weakness Exam Const General: no acute distress Orientation: alert HENMT Head: normal to inspection Ears: external ears normal General nose exam: external nose normal Mouth: moist mucous membranes Eyes General: appearance normal, both eyes and all related structures Neck Neck: normal visual inspection Resp Effort & Inspection: normal respiratory effort and able to speak in complete sentences Cardio Rate: regular rate GI Palpation: soft and nontender Back/Spine/Pelvis Back: no CVA tenderness Skin General skin exam: no rashes or lesions noted Neuro General: patient alert and patient oriented x3 Extrem General: normal to inspection Psych Mental Status: mental status grossly normal Course Vital Signs Vital signs: Vital Signs Temperature 36.3 C L 12/10/23 09:47 Pulse 62 12/10/23 09:47 Respiratory Rate 17 12/10/23 09:47 Blood Pressure 168/61 H 12/10/23 09:47 Pulse Oximetry 99 12/10/23 09:47 Temperature 36.3 C L 12/10/23 09:47 Temperature Source Temporal Artery Scan 12/10/23 09:47 Pulse 62 12/10/23 09:47 Respiratory Rate 17 12/10/23 09:47 Respiratory Effort Normal 12/10/23 09:49 Blood Pressure 168/61 H 12/10/23 09:47 Blood Pressure Position Sitting 12/10/23 09:47 Pulse Oximetry 99 12/10/23 09:47 Oxygen Delivery Method Room Air 12/10/23 09:47 Oxygen Flow Rate 0 12/10/23 09:47 Pain Level 7 12/10/23 09:47 Medical Decision Making 63-year-old male with a history of diabetes, hypertension, hyperlipidemia comes in with several months of lower back pain that intermittently radiates down his right leg. He says that the last few days has had increased pain in the right lower back. He denies any fevers, IV drug use, abdominal pain, nausea, vomiting. He is alert and oriented x 4 on arrival and has a normal gait. He localizes the pain to the right lower lumbar region also has some oblique area pain. No abdominal tenderness, no saddle anesthesia intact distal sensation and pulses with no leg swelling. Suspect musculoskeletal back pain versus disc herniation, no findings on history or exam to suggest entity such as cauda equina or spinal epidural abscess. Given acute worsening of pain and location of pain will obtain CT renal colic to evaluate for kidney stone also do recons of the lumbar spine to evaluate for possible compression fracture. Patient stable, labs and imaging show no significant acute findings, has degenerative disease of the lumbar spine. Discussed results with him, he is stable for discharge and will follow-up with his PCP and return precautions given Differential Diagnosis Differential Diagnosis: Musculoskeletal back pain, disc herniation, kidney stone, compression fract Imaging Data Radiologic Study: Attestation: I personally reviewed and interpreted this imaging study as follows: Imaging: CT Scan Radiologist's impression: IMPRESSION: No evidence of urinary tract calculi or hydronephrosis. Degenerative changes in the lumbar spine with moderate central canal stenosis at L3-4 and L4-5. Multilevel bilateral neural foraminal narrowing. Lab Data Lab results reviewed: Yes I reviewed the patient's lab results. Quality:SDOH Health Related Social Needs: No Data to Display PFSH All Active Problems (Updated 12/10/23 @ 11:32 by Gerber Casanova MD) Lumbar back pain (Acute) HTN (hypertension) with goal to be determined (Acute) Type 1 diabetes mellitus without complications (Acute) Accelerated essential hypertension (Acute) Hyperlipidemia, unspecified (Acute) Acquired hypothyroidism (Acute) Screening for colorectal cancer (Acute) Medical History Bilateral lower extremity edema Hyponatremia Elevated brain natriuretic peptide (BNP) level Liver mass, right lobe Social History Smoking/Tobacco Use Status: Former Tobacco Use Smoking risk assessment performed?: Yes Alcohol Intake: current Alcohol Intake frequency: a few times a month Drug use: Never Substance use type: does not use Do you feel safe at home: Yes Do you feel safe in your relationship?: Yes PAWSS Have you Been Recently Intoxicated or Drunk Within the Last 30 days?: No Have you Ever Experienced Previous Episodes of Alcohol Withdrawal?: No Have you ever Experienced Withdrawal Seizures?: No Have you ever Experienced Delirium Tremens(DT)s?: No Have you ever undergone Alcohol Rehabilitation Treatment (i.e, inpt ot outpatient treatment programs)?: No Have you ever Experienced Blackouts?: No Have you ever Combined Alcohol with other Downers within the last 90 days?: No Have you ever Combined Alcohol with any other Substance of Abuse during the last 90 days?: No Result: 0
[2023-12-10 10:17] LABS: Bilirubin Negative (Negative); Blood Negative (Negative); Clarity Clear (Clear); Glucose 100 mg/dL (Negative); Ketones Trace mg/dL (Negative); Leukocyte Esterase Negative (Negative); Nitrite Negative (Negative); Specific Gravity >= 1.030 (1.005-1.025); Urobilinogen 0.2 mg/dL (Up to 0.2)
[2023-12-10 10:22] LABS: Abs Immature Grans 0.03 10^3/uL (0.0-0.06); Absolute Basophil Count 0.09 10^3/uL (0.0-0.2); Absolute Eosinophil Count 0.61 10^3/uL (0.0-0.7); Absolute Lymphocyte Count 1.26 10^3/uL (1.2-3.4); Absolute Monocyte Count 1.14 10^3/uL (0.1-0.8); Absolute Neutrophil Count 5.83 10^3/uL (1.2-6.7); Eosinophils % 6.8 %; HCT 38.6 % (40.0-50.0); HGB 12.9 g/dL (13.5-17.5); Immature Grans % 0.3 %; Lymphocytes % 14.1 %; MCH 29.6 pg (27.0-33.0); MCHC 33.4 % (32.0-36.0); MCV 89 fL (80-95); MPV 9.2 fL (8.0-11.0); Monocytes % 12.7 %; Neutrophils % 65.1 %; Platelet Count 419 10^3/uL (130-400); RBC 4.36 10^6/uL (4.36-5.78); RDW 11.8 % (11.8-14.1); RDW-SD 38.4 fL; WBC 8.96 10^3/uL (4.4-10.8)
[2023-12-10 10:24] LABS: Bacteria Negative HPF (Negative); C & S Indicated? No; Casts 3-5 Hyaline LPF (Negative); Crystals Negative HPF (Negative); Epithelial Cells Rare HPF (Negative); Mucus Heavy (Negative); RBC Negative HPF (0-2); WBC Negative HPF (0-5)
[2023-12-10] MEDS: Ketorolac 15 MG/ML VIAL IVP (10:25)
[2023-12-10] MEDS: Normal Saline 1,000 ML 1000 ML IV (10:25)
[2023-12-10 10:48] LABS: ALT 20 U/L (16-63); AST 18 U/L (15-37); Alkaline Phosphatase 109 U/L (46-116); Anion Gap 8.7 mmol/L (3-11); BUN 27 mg/dL (7-18); Bilirubin, Total 0.47 mg/dL (0.2-1.0); CO2 29.3 mmol/L (21.0-32.0); CREATININE 1.4 mg/dL (0.70-1.30); Calcium 8.6 mg/dL (8.5-10.1); Chloride 102 mmol/L (98-107); Estimated GFR 55.78 (mL/min/1.73m2); Glucose 161 mg/dL (74-106); Lipase 23 U/L (16-77); Magnesium 1.8 mg/dL (1.8-2.4); Potassium 3.7 mmol/L (3.5-5.1); Sodium 140 mmol/L (136-145); Total Protein 7.6 g/dL (6.4-8.2)
[2023-12-10] MEDS: Gabapentin 300 MG CAP PO (11:38)
[2023-12-10 11:48] VITALS: BP 166/75; PULSE 56; RESP 16; O2SAT 95
== END 2023-12-10 11:50 | disposition home or self-care (01) ==
PROVIDERS: Emergency Provider Emergency Medicine; PCP Nurse Practitioner Family
DX: M51.36 Other intervertebral disc degeneration, lumbar region (principal); M48.061 Spinal stenosis, lumbar region without neurogenic claudication; E11.9 Type 2 diabetes mellitus without complications; I10 Essential (primary) hypertension; E78.5 Hyperlipidemia, unspecified; Z79.4 Long term (current) use of insulin; Z79.82 Long term (current) use of aspirin; Z87.891 Personal history of nicotine dependence
CPT/HCPCS: 36415; 80053; 83690; 96361; 96374; 99284; 74176; 81003; 81015; 83735; 85025; J1885

== ENCOUNTER 2024-03-13 13:03 | Outpatient (REF) | payer MEDICARE, OTHER, SELFPAY ==
[2024-03-13 19:12] LABS: Abs Immature Grans 0.02 10^3/uL (0.0-0.06); Absolute Basophil Count 0.07 10^3/uL (0.0-0.2); Absolute Eosinophil Count 0.46 10^3/uL (0.0-0.7); Absolute Lymphocyte Count 1.31 10^3/uL (1.2-3.4); Absolute Monocyte Count 0.52 10^3/uL (0.1-0.8); Basophils % 1.2 %; HGB 12.2 g/dL (13.5-17.5); Immature Grans % 0.3 %; Lymphocytes % 22.7 %; MCH 28.8 pg (27.0-33.0); MCV 87 fL (80-95); MPV 9.7 fL (8.0-11.0); Neutrophils % 58.8 %; Platelet Count 346 10^3/uL (130-400); RBC 4.24 10^6/uL (4.36-5.78); RDW 13.5 % (11.8-14.1); WBC 5.78 10^3/uL (4.4-10.8)
[2024-03-13 19:32] LABS: ALT 19 U/L (16-63); AST 20 U/L (15-37); Albumin 3.2 g/dL (3.4-5.0); Alkaline Phosphatase 98 U/L (46-116); Anion Gap 8.2 mmol/L (3-11); BUN 19 mg/dL (7-18); Bilirubin, Total 0.48 mg/dL (0.2-1.0); CO2 29.8 mmol/L (21.0-32.0); CREATININE 1.2 mg/dL (0.70-1.30); Calcium 9.1 mg/dL (8.5-10.1); Chloride 104 mmol/L (98-107); FREE T4 0.99 ng/dL (0.76-1.46); Glucose 108 mg/dL (74-106); Potassium 4.1 mmol/L (3.5-5.1); Sodium 142 mmol/L (136-145); TSH 1.57 uIU/mL (0.36-3.74); Total Protein 7.7 g/dL (6.4-8.2)
[2024-03-13 19:47] LABS: Hemoglobin A1C 7.3 % (<5.7)
== END 2024-03-13 13:04 | disposition home or self-care (01) ==
LOC: NCHCN 13:03
PROVIDERS: PCP Nurse Practitioner Family; Visit Provider Nurse Practitioner Family
DX: I10 Essential (primary) hypertension (principal)
CPT/HCPCS: 80053; 83036; 84439; 84443; 85025

== ENCOUNTER 2024-04-17 09:07 | Outpatient (CLI) | payer MEDICARE, OTHER, SELFPAY ==
--- NOTE | 2024-04-17 09:00 | RT.EKG_ITS ---
APPROVED REPORT Exam: Resting ECG Reason for Exam: Follow up Needed Patient Location: O HR:61 bpm ECG Measurements Heart Rate 61 AXIS NH 181 P 47 QRSd 86 QRS 43 QT 410 T 89 QTc 413 Conclusion Sinus rhythm...normal P axis, V-rate 50- 99 LVH with repolarization abnormalities
== END 2024-04-17 09:08 | disposition home or self-care (01) ==
LOC: DI.CARD 09:08
PROVIDERS: PCP Nurse Practitioner Family; Visit Provider Internal Medicine Cardiovascular Disease
DX: I10 Essential (primary) hypertension (principal)
CPT/HCPCS: 93010

== ENCOUNTER → 2024-05-26 12:57 | Outpatient (BNVA) | payer MEDICARE, OTHER, SELFPAY | PROVIDERS: PCP Nurse Practitioner Family; Referring Provider Nurse Practitioner Family; Visit Provider Surgery | DX: Z12.11 Encounter for screening for malignant neoplasm of colon (principal); R19.5 Other fecal abnormalities ==

== ENCOUNTER 2024-05-26 14:44 | Outpatient (CLI) | payer MEDICARE, OTHER, SELFPAY ==
[2024-05-26 15:00] LABS: Abs Immature Grans 0.01 10^3/uL (0.0-0.06); Absolute Basophil Count 0.07 10^3/uL (0.0-0.2); Absolute Eosinophil Count 0.53 10^3/uL (0.0-0.7); Absolute Lymphocyte Count 1.34 10^3/uL (1.2-3.4); Absolute Monocyte Count 0.68 10^3/uL (0.1-0.8); Absolute Neutrophil Count 3.71 10^3/uL (1.2-6.7); Basophils % 1.1 %; Eosinophils % 8.4 %; HCT 41.2 % (40.0-50.0); HGB 13.8 g/dL (13.5-17.5); Immature Grans % 0.2 %; Lymphocytes % 21.1 %; MCH 29.2 pg (27.0-33.0); MCHC 33.5 % (32.0-36.0); MCV 87 fL (80-95); MPV 9.9 fL (8.0-11.0); Monocytes % 10.7 %; Neutrophils % 58.5 %; Platelet Count 281 10^3/uL (130-400); RBC 4.73 10^6/uL (4.36-5.78); RDW 13.5 % (11.8-14.1); RDW-SD 42.6 fL; WBC 6.34 10^3/uL (4.4-10.8)
[2024-05-26 15:28] LABS: Anion Gap 7.9 mmol/L (3-11); BUN 18 mg/dL (7-18); CO2 30.1 mmol/L (21.0-32.0); CREATININE 1.2 mg/dL (0.70-1.30); Calcium 9.1 mg/dL (8.5-10.1); Chloride 105 mmol/L (98-107); Ferritin 123 ng/mL (26-388); Glucose 125 mg/dL (74-106); Potassium 3.7 mmol/L (3.5-5.1); Sodium 143 mmol/L (136-145)
== END 2024-05-26 14:45 | disposition home or self-care (01) ==
LOC: LBO 14:45
PROVIDERS: PCP Nurse Practitioner Family; Visit Provider Surgery
DX: R81 Glycosuria (principal); E10.9 Type 1 diabetes mellitus without complications; E03.9 Hypothyroidism, unspecified; D64.9 Anemia, unspecified; R19.5 Other fecal abnormalities
CPT/HCPCS: 36415; 80048; 82728; 85025

== ENCOUNTER 2024-05-30 08:05 | Day surgery (SDC) | payer MEDICARE, OTHER, SELFPAY ==
--- NOTE | 2024-05-29 21:14 | COLE_ITS ---
Date of service: 05/30/24 Time of Service: 10:06 Colonoscopy Report Date of procedure: 05/30/24 Pre-op diagnosis general: Hemoccult positive Post-op diagnosis procedure note: other (Colon polyp) Surgeon: Tawanna Orellana Anesthesia Type: General:No Airway Estimated blood loss (mL): 1 Pathology: other Complications: None Disposition: same day Prep: Miralax/Dulcolax Retraction Time: 11 Procedure Description: After informed consent was obtained, explaining risks of the procedure, including but not limits to: bleeding, infections, complications of anesthesia, perforations (which may require antibiotics and /or surgery and stay in the hospital), and abdominal pain/cramping. The patient was taken to the procedure room and placed in a left decubitous position. Monitors were applied and a time out was done. The patients name, date of , procedure, allergies to medications and metal in their body was reviewed. The patient was then sedated. Once sedated and comfortable a rectal exam was done. External exam was normal. Internal exam revealed a normal sphincter tone and no palpable masses. The prostate-no masses palpated today. There is a incidental pilonidal cyst noted. There is no signs of any infection or abscess. The previously lubricated Olympus scope was then introduced (see RN notes for scope number) and retrofelexed. No internal hemorrhoids were identified. The scope was then advanced to the cecum without difficulty. The TI and appendiceal orifice were identified. The scope was then slowly retracted over 11 minutes back into the rectum. Polyps: A flat, .5cm polyp was found at 80cm. This was removed with a cold biting forceps. All of the specimen was retrieved. This will be sent to pathology. There is no bleeding noted from the polypectomy site. Diverticula:none The mucosa is pink and healthy w/ a normal vascular pattern. The scope was removed, and the patient was woken up and taken back to Same day surgery in stable condition. The patient tolerated the procedure well and there were no immediate complications. Follow up: The patient should follow up in 7-10 years, unless they develop changes in bowel habits or other new gastrointestinal complaints. [place] Bowel Prep [place] Bowel Prep Right Colon: 3 Left Colon: 3 Transverse Colon: 3 Total Score: 9
--- NOTE | 2024-05-29 21:15 | PDOC.DSDIS_ITS ---
Date of service: 05/30/24 Discharge Plan Disposition Patient Disposition: Home Condition: Good Discharge Details Reason For Visit: colon cancer screening Attending Provider: Tawanna Orellana Primary Care Provider: Reny Rodriguez Home Meds and New Rx's Prescriptions: Continued red beet-sour greco extract 250-0.5 mg tablet,chewable 2 tab PO DAILY lisinopril 40 mg tablet 40 mg PO DAILY clonidine HCl 0.1 mg tablet 0.1 mg PO DAILY insulin glargine [Lantus U-100 Insulin] 100 UNIT/1 ML solution 48 units subcut DAILY Humalog KwikPen Insulin 200 UNIT/1 ML insulin pen 1 - 10 unit SQ TID metoprolol succinate 100 mg tablet extended release 24 hr 100 mg PO DAILY levothyroxine [Synthroid] 112 mcg tablet 112 mcg PO DAILY diltiazem HCl 300 MG capsule,extended release 24 hr 360 mg PO QAM hydrochlorothiazide 25 MG tablet 25 mg PO QAM aspirin [Aspirin Low-Strength] 81 MG tablet,chewable 81 mg PO QAM pravastatin 40 mg tablet 80 mg PO QAM Discontinued polyethylene glycol 3350 17 gram/dose powder 238 g PO ONCE Qty: 238 0RF Rx Instructions: take per colonoscopy instructions bisacodyl [Dulcolax (bisacodyl)] 5 mg tablet,delayed release (DR/EC) 5 mg PO ONCE Qty: 4 0RF Rx Instructions: take per colonoscopy instructions Discharge Instructions Additional Instructions: [facility] Colonoscopy Post- Op Instructions Instructions for Everyone who is given Anesthesia: For your safety, please do the following for the next twenty-four (24) hours: *Do Not operate a motor vehicle (car, truck, motorcycle, etc.) *Do Not drink alcoholic beverages or use any recreational drugs for the first 24 hours or while taking pain medications. The medications in your body may have a reaction that can be dangerous. *Do Not make any important decisions or sign any important papers. Findings: Very small colon polyp. Otherwise normal colon Follow up: Office will send you a letter in 3 to 4 weeks time with the results of the pathology and when we want you to repeat the colonoscopy, most likely 7 to 10 years time. -Continue to see day of the aspirin. Repeat blood work in 6 weeks time. 1. No lifting over 20 pounds or strenuous activity for the first 24 hours after your procedure. After 24 hours there are no restrictions on your activity but you may feel fatigued for a few days. 2. After you arrive home you may have a light meal and return to your normal diet as you can tolerate it without feeling sick to your stomach. 3. You may have a bloated, gaseous feeling in your belly (abdomen) after a colonoscopy. Passing gas and belching will help. Walking or lying down on your left side with your knees flexed may relieve the discomfort. Call the office at [phone] (Office) or [phone] (Hospital) right away if you notice any of the following: a.Vomiting of blood or ?coffee ground stools?. b.Rectal bleeding 1Tbsp, blood clots or continuous bleeding. c.Severe belly (abdominal) pain. d.A hard distended belly (abdomen) and an inability to pass gas. 4. Please don?t expect to have a normal BM (bowel movement) for 2-3 days after your procedure. 5. If there are questions regarding the findings of your procedure, please contact your doctor 6. If you are unable to contact your doctor with a problem, contact the hospital at [phone]. 7. Continue all your regular medications unless directed otherwise. I understand the above instructions and have no questions. Signature of Patient or Adult Escort Name of Responsible Adult Escort Signature of Nurse Date/Time Activity:: see above Diet:: see above Discharge Orders Discharge Orders: Discharge Order (Routine); Ordered 05/30/24 Ordered By: Tawanna Orellana DS: Diagnosis Discharge Diagnosis (1) Heme positive stool: Status: Acute Asessment and Plan: The patient is seen and examined after their colonoscopy.? The patient has been able to pass gas.? They are not having abdominal pain.? They have been able to tolerate liquids and a snack.? They do not have any nausea or vomiting.? They are not having any chest pain or shortness of breath.??? They are not having any rectal bleeding. Their vital signs have been stable-see nursing notes. We discussed findings during their colonoscopy, and any biopsies that were done/polyps that were removed. The patient will be sent a letter with any biopsy results, and when to repeat the colonoscopy.-see discharge instructions. Patient was given explicit instructions to follow-up regarding colonoscopy-refer to discharge instructions.? We reviewed resumption of medications. Patient verbalized understanding and discharged in stable and satisfactory condition- See nursing notes. (2) Type 1 diabetes mellitus without complications: Status: Acute (3) Primary hypertension: Status: Acute (4) Hyperlipidemia, unspecified: Status: Acute (5) Colon polyp: Status: Acute (6) Pilonidal cyst: Status: Acute
[2024-05-30 08:35] VITALS: BP 167/83; PULSE 90; RESP 18; TEMP 36.3; O2SAT 96
[2024-05-30] MEDS: Lactated Ringers 1,000 ML 80 ML IV (08:57)
--- NOTE | 2024-05-30 09:06 | W.ANESPRE ---
General Info Date of Service Date Performed: 05/30/24 Height: 5 ft 7 in Weight: 87 kg Body Mass Index (BMI): 30.0 Surgical Procedure: Operation Date: 05/30/24 09:05 Proposed Procedure Side Surgeon carlos Orellana, Meds Allergies and Home Medications Allergies Allergy/AdvReac Type Severity Reaction Status Date / Time No Known Allergies Allergy Verified 05/30/24 08:25 Home Medication ?Medication ?Instructions ?Recorded aspirin 81 mg chewable tablet 81 mg PO QAM 05/13/14 (Aspirin Low-Strength) diltiazem HCl 300 mg capsule,24 360 mg PO QAM 05/13/14 hr,extended release hydrochlorothiazide 25 mg tablet 25 mg PO QAM 05/13/14 insulin glargine 100 unit/mL 48 units subcut DAILY 06/28/15 subcutaneous solution (Lantus U-100 Insulin) insulin lispro 200 unit/mL (3 mL) 1 - 10 unit SQ TID 06/28/15 subcutaneous pen (Humalog KwikPen U-200 Insulin) metoprolol succinate 100 mg 100 mg PO DAILY 02/10/21 tablet,extended release 24 hr clonidine HCl 0.1 mg tablet 0.1 mg PO DAILY 03/04/21 red beet 250 mg-sour greco 2 tab PO DAILY 04/19/23 extract 0.5 mg chewable tablet lisinopril 40 mg tablet 40 mg PO DAILY 04/17/24 pravastatin 40 mg tablet 80 mg PO QAM 04/17/24 levothyroxine 112 mcg tablet 112 mcg PO DAILY 05/21/24 (Synthroid) Current Visit Medications: Current Medications Generic Name Dose Route Start Last Admin Trade Name Ham PRN Reason Stop Dose Admin Hyoscyamine Sulfate 0.125 mg 05/30/24 05:18 Hyoscyamine 0.125 Mg Sl/Oral/Chew SL 06/29/24 05:17 DIRECTED PRN Ringer's Solution 1,000 mls @ 80 mls/hr 05/30/24 06:00 05/30/24 08:57 IV 05/30/24 23:59 80 mls/hr INFUSION BETY Administration IV Miscellaneous Supplies 1 each 05/30/24 06:00 Iv Access IV 05/30/24 23:59 DIRECTED BETY Ondansetron HCl 4 mg 05/30/24 05:18 Ondansetron 4 Mg/2 Ml Vial IVP 06/29/24 05:17 Q4H PRN PRN Nausea / Vomiting Sodium Chloride 0 ml 05/30/24 06:00 Normal Saline Flush 10 Ml Syr IV 05/30/24 23:59 PRN PRN Sodium Chloride 0 ml 05/30/24 06:00 Normal Saline 10 Ml Vial IJ 05/30/24 23:59 DIRECTED PRN Sterile Water 0 ml 05/30/24 06:00 Water,Injection,Sterile 10 Ml Vial IJ 05/30/24 23:59 DIRECTED PRN PFSH Active Problems Active Problems: Problem Status Onset Code Port-wine stain of skin Acute Q82.5 Glycosuria Acute R81 Heme positive stool Acute R19.5 Sciatic leg pain Acute M54.30 Primary hypertension Acute I10 Type 1 diabetes mellitus without complications Acute E10.9 Hyperlipidemia, unspecified Acute E78.5 Acquired hypothyroidism Acute E03.9 Medical History Medical History Chronic anemia Bilateral lower extremity edema Hyponatremia Elevated brain natriuretic peptide (BNP) level Liver mass, right lobe Surgical History Surgical History History of colonoscopy (~09/03/15) Tobacco Smoking/Tobacco Use Status: Former Tobacco Use Alcohol Alcohol Intake: current Alcohol intake frequency: a few times a month Substance Use Substance use: Never Substance use type: does not use Vital Signs and Lab Results Vital Signs Most Recent Vital Signs in EMR: Most Recent Vital Signs Temp Pulse Resp BP Pulse Ox 36.3 C L 90 18 167/83 H 96 05/30/24 08:35 05/30/24 08:35 05/30/24 08:35 05/30/24 08:35 05/30/24 08:35 Lab Results Blood Type / Crossmatch: No Data to Display Complete Blood Count: White Blood Count 6.34 10^3/uL (4.4-10.8) 05/26/24 14:37 Red Blood Count 4.73 10^6/uL (4.36-5.78) 05/26/24 14:37 Hemoglobin 13.8 g/dL (13.5-17.5) 05/26/24 14:37 Hematocrit 41.2 % (40.0-50.0) 05/26/24 14:37 Platelet Count 281 10^3/uL (130-400) 05/26/24 14:37 Complete Metabolic Panel: Sodium 143 mmol/L (136-145) 05/26/24 14:37 Potassium 3.7 mmol/L (3.5-5.1) 05/26/24 14:37 Chloride 105 mmol/L (98-107) 05/26/24 14:37 Carbon Dioxide 30.1 mmol/L (21.0-32.0) 05/26/24 14:37 BUN 18 mg/dL (7-18) 05/26/24 14:37 Creatinine 1.2 mg/dL (0.70-1.30) 05/26/24 14:37 Est GFR (CKD-EPI 2020) 66.70 (mL/min/1.73m2) 05/26/24 14:37 Calcium 9.1 mg/dL (8.5-10.1) 05/26/24 14:37 Glucose 125 mg/dL (74-106) H 05/26/24 14:37 Liver Function Panel: No Data to Display Coagulation Panel: No Data to Display Cardiac Panel: No Data to Display Arterial Blood Gas: No Data to Display Venous Blood Gas: No Data to Display Pancreas Panel: No Data to Display Thyroid Panel: No Data to Display Infectious Disease: No Data to Display Blood Cultures: No Data to Display Toxicology Panel: No Data to Display Imaging and Studies Imaging and Studies Study information below may be from another EMR and interpreted by another provider. Please see original notes in EMR for more complete details. EKG Summary: 04/17/24: Exam: Resting ECG Reason for Exam: Follow up Needed Patient Location: O HR:61 bpm ECG Measurements Heart Rate [address] 181 P 47 QRSd 86 QRS 43 QT 410 T89 QTc 413 Conclusion Sinus rhythm...normal P axis, V-rate 50- 99 LVH with repolarization abnormalities Echocardiogram Summary: 04/04/22: Conclusion Normal left ventricular wall thickness and chamber size. Estimated ejection fraction is 55 to 60%. Wall motion is normal Normal right ventricular size and systolic function Both atria are normal in size The aortic valve is trileaflet. Leaflets are thickened but there is no aortic stenosis or regurgitation Moderate mitral annular calcification. Trace mitral regurgitation Normal tricuspid valve with trace regurgitation. Estimated right ventricular systolic pressure is 21 mmHg Anesthesia Assessment and Plan Anesthesia History Personal History: No History of Anesthesia Complications Family History: No Family History of Anesthesia Complications Exercise Tolerance Exercise Tolerance: Metabolic Equivalents>4 Pertinent Negatives Pertinent Negatives: No Symptoms of GERD, No Major Cardiovascular Symptoms or Complaints and No Major Pulmonary Symptoms or Complaints Cardiac & Pulmonary Exam Cardiac Exam: Normal S1/S2 Heart Sounds Pulmonary Exam: Clear Bilateral Breath Sounds Implantable Cardiac Device Does patient have a Pacemaker or an ICD?: No Airway Exam Known Difficult Airway: No Mallampati Class: 2 Mouth Opening: Normal (> 3cm) Thyromental Distance: Greater than 3 cm Neck Range of Motion: Full ROM Neck Circumference: Normal Teeth Condition: Removable Dentures/Plates Upper ASA Classification ASA Score: ASA 3 Emergency Case?: No NPO Status NPO Status: NPO Clears >2 hours, Solids >8 hours Anesthesia Plan Resuscitation Status: Full Code Anesthesia Technique: General Anesthesia Airway Planned: Natural Airway Monitors Used: Standard Monitors
--- NOTE | 2024-05-30 09:44 | BOWEL_PTH ---
PATIENT: Yeyo Lau LOC: [facility] U#:[id number] AGE/SX: 64/M ROOM: RE05/30/[address]: Tawanna Orellana : 1960 BED: DIS: 05/30/2024 SPEC #: [id number] RECD: 05/30/24 12:55 STATUS: KATERYNA REQ #: [id number] VANDA: 05/30/24 09:[address]: Tawanna Orellana DEPT: Surgical Specimen RECD BY: Isabel Doty ENTERED: 05/30/24 12:56 SP TYPE: Bowel OTHR DR: Reny Rodriguez Tissues: 1 - BIOPSY BOWEL Procedures: GROSS AND MICRO LEVEL 4 Comments: [id number]
[2024-05-30 09:58] VITALS: BP 142/79; PULSE 83; RESP 18; TEMP 36.5; O2SAT 97
--- NOTE | 2024-05-30 10:04 | W.ANESPOSTOP ---
Postoperative Evaluation Date, Time and Location Date Performed: 05/30/24 Time Performed: 10:00 Patient Location: [facility] Unit Vital Signs Most Recent Imported Vital Signs: Most Recent Vital Signs Temp Pulse Resp BP Pulse Ox 36.5 C 83 18 142/79 H 97 05/30/24 09:58 05/30/24 09:58 05/30/24 09:58 05/30/24 09:58 05/30/24 09:58 Pain Score Most Recent Pain Score: Most Recent Pain Score Pain Level 0 05/30/24 08:35 Assessment Mental Status: Awake (Alert & Oriented to Patient Baseline) Airway and Respiratory Function: Patent airway with normal (patient baseline) respiratory exam Cardiovascular Function: Hemodynamically Stable Hydration Status: Adequately Hydrated Nausea & Vomiting: No Nausea or Vomiting Pain: Pt. Denies Any Pain Peripheral Nerve Block: Patient did not receive a nerve block
[2024-05-30 10:28] VITALS: BP 171/84; PULSE 65; RESP 20; TEMP 36.6; O2SAT 97
== END 2024-05-30 11:01 | disposition home or self-care (01) ==
LOC: SUR 08:05
PROVIDERS: PCP Nurse Practitioner Family; Visit Provider Surgery
PROC: 0DJD8ZZ Inspection of Lower Intestinal Tract, Via Natural or Artificial Opening Endoscopic (ICD-10-PCS; CPT 45378; principal; 2024-05-30 09:00)
DX: Z12.11 Encounter for screening for malignant neoplasm of colon (principal); R19.5 Other fecal abnormalities; E10.9 Type 1 diabetes mellitus without complications; K63.5 Polyp of colon; I10 Essential (primary) hypertension
CPT/HCPCS: 45380; 88305; J2704

== ENCOUNTER 2024-08-28 14:11 | Outpatient (REF) | payer MEDICARE, OTHER, SELFPAY ==
[2024-08-28 20:44] LABS: COMMENT (LAB VIEW ONLY) 122.18 mg/dL
[2024-08-28 21:06] LABS: Microalb ug/mg Crea 222.4 ug/mg Cr
== END 2024-08-28 14:12 | disposition home or self-care (01) ==
LOC: NCHCN 14:11
PROVIDERS: PCP Nurse Practitioner Family; Visit Provider Nurse Practitioner Family
DX: E10.9 Type 1 diabetes mellitus without complications (principal)
CPT/HCPCS: 82043; 82570

== ENCOUNTER 2024-10-08 19:09 | Emergency (ER) | payer MEDICARE, OTHER, SELFPAY ==
[2024-10-08 19:17] VITALS: BP 187/82; PULSE 67; RESP 20; TEMP 36.7; O2SAT 94
--- NOTE | 2024-10-08 19:29 | W.ED.GENAD ---
Discharge Plan Disposition Patient Disposition: Home Condition: Stable Discharge Details Clinical Impression: Hypertensive urgency Primary Care Provider: Reny Rodriguez ED Provider: Justen Walker Home Meds and New Rx's Prescriptions: Continued red beet-sour greco extract 250-0.5 mg tablet,chewable 2 tab PO DAILY lisinopril 40 mg tablet 40 mg PO DAILY clonidine HCl 0.1 mg tablet 0.1 mg PO DAILY insulin glargine [Lantus U-100 Insulin] 100 UNIT/1 ML solution 48 units subcut DAILY Humalog KwikPen Insulin 200 UNIT/1 ML insulin pen 1 - 10 unit SQ TID metoprolol succinate 100 mg tablet extended release 24 hr 100 mg PO DAILY levothyroxine [Synthroid] 112 mcg tablet 112 mcg PO DAILY diltiazem HCl 300 MG capsule,extended release 24 hr 360 mg PO QAM hydrochlorothiazide 25 MG tablet 25 mg PO QAM pravastatin 40 mg tablet 80 mg PO QAM Discharge Instructions Instructions: High blood pressure emergencies, DASH diet Additional Instructions: You were seen in the emergency department for the high blood pressure readings at home, you were asymptomatic and your workup is negative for any emergent endorgan damage from hypertensive emergency. You need to follow-up with your primary care provider tomorrow and have them adjust your medications as you have multiple complex antihypertensives, please return to the emergency department for severe sudden onset of headache, visual changes, chest pain or other emergent concerns. Referrals: Reny Rodriguez [Primary Care Provider] - Discharge Data Discharge Date/Time-TO BE ENTERED AT DEPARTURE: 10/08/24 21:15 HPI General Date/Time Provider Initiated Documentation: 10/08/24 19:29. HPI Narrative: 64 year-old male presents to ED today by POV/ambulating with his with a chief complaint of high blood pressure readings at home, recommended to record a BP journal by PCP- which has been consistent 190s/110s, with occasional SBP in low 200's with onset for the past couple weeks. Patient denies any symptoms, and was directed to send a picture of these values to PCP but he has not done so, and encouraged ED evaluation. Quality described as no headaches, no chest pain, no palpitations, no radiation to fever, chest pain, headache, visual changes, palpitations, flank pain, difficulty urinating, nausea. Severity is described as 0/10. Palliating factors include nothing specific attempted. Provoking factors include nothing specific. Events leading up to the incident/Associated Symptoms: Patient is on multiple antihypertensives including lisinopril, metoprolol, hydrochlorothiazide, diltiazem and clonidine. Patient not anticoagulated. Related Data Home Medications ?Medication ?Instructions ?Recorded ?Confirmed diltiazem HCl 300 mg capsule,24 360 mg PO QAM 05/13/14 10/08/24 hr,extended release hydrochlorothiazide 25 mg tablet 25 mg PO QAM 05/13/14 10/08/24 insulin glargine 100 unit/mL 48 units subcut DAILY 06/28/15 10/08/24 subcutaneous solution (Lantus U-100 Insulin) insulin lispro 200 unit/mL (3 mL) 1 - 10 unit SQ TID 06/28/15 10/08/24 subcutaneous pen (Humalog KwikPen U-200 Insulin) metoprolol succinate 100 mg 100 mg PO DAILY 02/10/21 10/08/24 tablet,extended release 24 hr clonidine HCl 0.1 mg tablet 0.1 mg PO DAILY 03/04/21 10/08/24 red beet 250 mg-sour greco 2 tab PO DAILY 04/19/23 10/08/24 extract 0.5 mg chewable tablet lisinopril 40 mg tablet 40 mg PO DAILY 04/17/24 10/08/24 pravastatin 40 mg tablet 80 mg PO QAM 04/17/24 10/08/24 levothyroxine 112 mcg tablet 112 mcg PO DAILY 05/21/24 10/08/24 (Synthroid) Allergies Allergy/AdvReac Type Severity Reaction Status Date / Time No Known Allergies Allergy Verified 10/08/24 19:21 General Stated Complaint: GenMedical LORA: 3 Review of Systems All systems reviewed & are unremarkable except as noted in HPI and below Exam Narrative Exam Narrative: GENERAL APPEARANCE: Well-nourished, non-toxic, awake and alert, atraumatic, no acute distress. SKIN: Warm, pink, dry, intact, without rashes/lesions/ulcerations. HEAD: Normocephalic, atraumatic, normal hair distribution for gender/age. EYES: Normal conjunctiva, no exudates on lids/lashes. ENT: Nares patent, no circumoral cyanosis, no facial swelling NECK: Supple, trachea midline, painless cervical ROM. LUNGS/CHEST: Lungs CTA bilaterally, non-labored respirations, normal A/P diameter, symmetrical expansion, no chest wall deformity HEART (CV/PV): Regular rate and rhythm without murmur, no peripheral edema, no JVD. ABDOMEN: Soft, non-distended, no guarding. MSK: Normal ROM, no swelling/deformity to bilateral UEs or LEs, moving all extremities without weakness, no cyanosis, spine midline without tenderness, normal curvature. NEURO: Mental Status AAOx4 - alert to person, place, time, events No facial droop, no forehead involvement. Motor: No focal weakness - strength 5/5 in bilateral UEs and LEs, proximal and distal, symmetric. Sensory: sensation intact to light touch globally. Gait normal: patient ambulated without ataxia into ED room. PSYCH: euthymic, cooperative, pleasant, appropriate speech Course Vital Signs Vital signs: Vital Signs Temperature 36.7 C 10/08/24 19:17 Pulse 67 10/08/24 19:17 Respiratory Rate 20 10/08/24 19:17 Blood Pressure 187/82 H 10/08/24 19:17 Pulse Oximetry 94 10/08/24 19:17 Temperature 36.7 C 10/08/24 19:17 Pulse 67 10/08/24 19:17 Respiratory Rate 20 10/08/24 19:17 Blood Pressure 187/82 H 10/08/24 19:17 Blood Pressure Position Sitting 10/08/24 19:17 Pulse Oximetry 94 10/08/24 19:17 Oxygen Delivery Method Room Air 10/08/24 19:17 Oxygen Flow Rate 0 10/08/24 19:17 Medical Decision Making This dictation utilizes [id number] dictation software and may contain unedited grammatical errors. 64 year-old male presents to ED today by POV/ambulating with his with a chief complaint of high blood pressure readings at home, recommended to record a BP journal by PCP- which has been consistent 190s/110s, with occasional SBP in low 200's with onset for the past couple weeks. Patient denies any symptoms, and was directed to send a picture of these values to PCP but he has not done so, and encouraged ED evaluation. Quality described as no headaches, no chest pain, no palpitations, no radiation to fever, chest pain, headache, visual changes, palpitations, flank pain, difficulty urinating, nausea. Severity is described as 0/10. Palliating factors include nothing specific attempted. Provoking factors include nothing specific. Events leading up to the incident/Associated Symptoms: Patient is on multiple antihypertensives including lisinopril, metoprolol, hydrochlorothiazide, diltiazem and clonidine. Patients' medical history: Chronic anemia, elevated BNP, liver mass, hypertension, T1DM, hyperlipidemia. Family and social history: Noncontributory. Pertinent exam findings / vital signs include benign cardiopulmonary exam, neuro intact, nontoxic and afebrile. Differential / pathologies of concern include chronic hypertension, hypertensive urgency, no symptoms to suggest hypertensive emergency. Diagnostic studies of: -CBC, CMP, troponin, BNP, TSH, UA, EKG-withheld radiative studies with low suspicion for hypertensive emergency, no need for CT head with no headache, no chest pain to need a chest x-ray. -CBC is unremarkable with baseline chronic anemia - CMP is fairly unremarkable with mildly elevated BUN and 1.4 creatinine baseline - Troponin negative - BNP is chronically elevated - TSH within normal limits - Patient does have proteinuria and trace blood, chronic in nature - EKG shows sinus rhythm at 67 bpm with P waves followed by narrow complex QRS with normal axis, no acute T wave abnormalities, no ST depressions or reciprocal elevations, normal intervals Interventions of: -Provided reassurance, recommend outpatient adjustment of medications by calling his PCP tomorrow as he is on 4 antihypertensives and I will leave it to them to adjust his complex regimen. ED Course/Assessment/Plan: 64-year-old male presents with chronic hypertension on 4 different antihypertensive with some high readings over the past week or so and his convinced him to come get checked out, he has not consulted with his primary care yet, there is no sign of any significant endorgan damage beyond his baseline abnormalities, he is having no symptoms of hypertensive emergency, I counseled the patient on following up with his primary care for medication adjustment as he is maxed out on some of his medicines and his complex regimen should be adjusted by a provider that can follow-up with him. Findings not consistent with acute end-organ damage associated with hypertensive emergency, ICH, ACS, CHF. Disposition of Hypertensive Urgency. Patient verbalized understanding of the plan and return to ED criteria and engaged in shared decision making. Medical Records Medical records reviewed: Yes I reviewed the patient's medical records. Lab Data Lab results reviewed: Yes I reviewed the patient's lab results. Labs: Laboratory Tests Range/Units 10/08/24 10/08/24 20:00 20:12 WBC (4.4-10.8) 10^3/uL 6.93 RBC (4.36-5.78) 10^6/uL 4.41 Hgb (13.5-17.5) g/dL 13.3 L Hct (40.0-50.0) % 38.9 L MCV (80-95) fL 88 MCH (27.0-33.0) pg 30.2 MCHC (32.0-36.0) % 34.2 RDW (11.8-14.1) % 11.7 L Plt Count (130-400) 10^3/uL 423 H MPV (8.0-11.0) fL 9.4 Immature Gran % % 0.3 Neutrophils % % 61.6 Lymphocytes % % 21.2 Monocytes % % 8.5 Eosinophils % % 7.1 Basophils % % 1.3 Nucleated RBC % (0.0-0.3) % 0.0 Absolute Neutrophils (1.2-6.7) 10^3/uL 4.27 Absolute Lymphocytes (1.2-3.4) 10^3/uL 1.47 Absolute Monocytes (0.1-0.8) 10^3/uL 0.59 Absolute Eosinophils (0.0-0.7) 10^3/uL 0.49 Absolute Basophils (0.0-0.2) 10^3/uL 0.09 Sodium (136-145) mmol/L 138 Potassium (3.5-5.1) mmol/L 4.2 Chloride (98-107) mmol/L 101 Carbon Dioxide (21.0-32.0) mmol/L 29.9 Anion Gap (3-11) mmol/L 7.1 BUN (7-18) mg/dL 27 H Creatinine (0.70-1.30) mg/dL 1.4 H Est GFR (CKD-EPI 2020) (mL/min/1.73m2) 55.43 Glucose (74-106) mg/dL 283 H Calcium (8.5-10.1) mg/dL 9.6 Troponin I (<or=76) ng/L 19 NT-Pro-B Natriuret Pep (<300) pg/mL 389 H TSH (0.36-3.74) uIU/mL 3.18 Urine Color (Yellow) Yellow Urine Clarity (Clear) Clear Urine pH (5-8) 5.5 Ur Specific [place] (1.005-1.025) 1.025 Urine Protein (Neg-Trace) mg/dL 100 H Urine Ketones (Negative) mg/dL Negative Urine Blood (Negative) Trace-intact H Urine Nitrite (Negative) Negative Urine Bilirubin (Negative) Negative Urine Urobilinogen (Up to 0.2) mg/dL 0.2 Ur Leukocyte Esterase (Negative) Negative Urine RBC (0-2) HPF 0-2 Urine WBC (0-5) HPF Negative Ur Epithelial Cells (Negative) HPF Negative Urine Crystals (Negative) HPF Negative Urine Bacteria (Negative) HPF Negative Urine Mucus (Negative) Trace Ur Culture Indicated? No Urine Glucose (Negative) mg/dL 500 H Quality:SDOH Health Related Social Needs: No Data to Display PFSH All Active Problems (Updated 10/08/24 @ 21:03 by RODRI Keen) Hypertensive urgency (Acute) Anemia (Chronic) Pilonidal cyst (Acute) Colon polyp (Acute) [place]-wine stain of skin (Acute) Glycosuria (Acute) Heme positive stool (Acute) Sciatic leg pain (Acute) Primary hypertension (Acute) Type 1 diabetes mellitus without complications (Acute) Hyperlipidemia, unspecified (Acute) Acquired hypothyroidism (Acute) Medical History (Updated 10/08/24 @ 21:03 by RODRI Keen) Chronic anemia Bilateral lower extremity edema Hyponatremia Elevated brain natriuretic peptide (BNP) level Liver mass, right lobe Surgical History (Updated 06/02/24 @ 07:36 by Silvia Machuca) History of colonoscopy (~05/2024) polups 7-10years Social History Smoking/Tobacco Use Status: Former Tobacco Use Quit Date: 05/14/77 Smoking risk assessment performed?: Yes Alcohol Intake: current Alcohol Intake frequency: a few times a month Drug use: Never Substance use type: does not use Housing: house Do you feel safe at home: Yes Do you feel safe in your relationship?: Yes
--- NOTE | 2024-10-08 19:30 | RT.EKG_ITS ---
APPROVED REPORT Exam: Resting ECG Reason for Exam: hypertensive urgency Patient Location: E HR:67 bpm ECG Measurements Heart Rate 67 AXIS VT 180 P 47 QRSd 91 QRS 24 QT 414 T 32 QTc 437 Conclusion Sinus rhythm, rate 67 No interval abnormalities No STEMI Borderline ST elevation V1, V2, unchanged from priors
[2024-10-08 20:05] VITALS: RESP 18
[2024-10-08 20:08] LABS: Abs Immature Grans 0.02 10^3/uL (0.0-0.06); Absolute Basophil Count 0.09 10^3/uL (0.0-0.2); Absolute Eosinophil Count 0.49 10^3/uL (0.0-0.7); Absolute Lymphocyte Count 1.47 10^3/uL (1.2-3.4); Absolute Monocyte Count 0.59 10^3/uL (0.1-0.8); Absolute Neutrophil Count 4.27 10^3/uL (1.2-6.7); Basophils % 1.3 %; Eosinophils % 7.1 %; HCT 38.9 % (40.0-50.0); HGB 13.3 g/dL (13.5-17.5); Immature Grans % 0.3 %; Lymphocytes % 21.2 %; MCH 30.2 pg (27.0-33.0); MCHC 34.2 % (32.0-36.0); MCV 88 fL (80-95); MPV 9.4 fL (8.0-11.0); Monocytes % 8.5 %; Neutrophils % 61.6 %; Platelet Count 423 10^3/uL (130-400); RBC 4.41 10^6/uL (4.36-5.78); RDW 11.7 % (11.8-14.1); RDW-SD 37.8 fL; WBC 6.93 10^3/uL (4.4-10.8)
[2024-10-08 20:24] LABS: Bilirubin Negative (Negative); Blood Trace-intact (Negative); Clarity Clear (Clear); Glucose 500 mg/dL (Negative); Ketones Negative (Negative); Leukocyte Esterase Negative (Negative); Nitrite Negative (Negative); Specific Gravity 1.025 (1.005-1.025); Urobilinogen 0.2 mg/dL (Up to 0.2); pH 5.5 (5-8)
[2024-10-08 20:30] LABS: Bacteria Negative HPF (Negative); C & S Indicated? No; Crystals Negative HPF (Negative); Epithelial Cells Negative HPF (Negative); Mucus Trace (Negative); RBC 0-2 HPF (0-2); WBC Negative HPF (0-5)
[2024-10-08 20:34] LABS: Anion Gap 7.1 mmol/L (3-11); BUN 27 mg/dL (7-18); CO2 29.9 mmol/L (21.0-32.0); CREATININE 1.4 mg/dL (0.70-1.30); Calcium 9.6 mg/dL (8.5-10.1); Chloride 101 mmol/L (98-107); Estimated GFR 55.43 (mL/min/1.73m2); Glucose 283 mg/dL (74-106); NT-proBNP 389 pg/mL (<300); Potassium 4.2 mmol/L (3.5-5.1); Sodium 138 mmol/L (136-145); TSH (W/Ref FT4) 3.18 uIU/mL (0.36-3.74); Troponin I 19 ng/L (<or=76)
[2024-10-08 20:58] VITALS: BP 167/70
== END 2024-10-08 21:15 | disposition home or self-care (01) ==
PROVIDERS: Emergency Provider Physician Assistant; PCP Nurse Practitioner Family
DX: I16.0 Hypertensive urgency (principal)
CPT/HCPCS: 99283; 99284; 36415; 80048; 93005; 81003; 81015; 83880; 84443; 84484; 85025; 93010

== ENCOUNTER → 2025-04-16 12:46 | Outpatient (BNVA) | payer MEDICARE, OTHER, SELFPAY | PROVIDERS: PCP Nurse Practitioner Family; Visit Provider Internal Medicine Cardiovascular Disease | DX: I10 Essential (primary) hypertension (principal) | CPT/HCPCS: 99213 ==